=== PATIENT | female | born 1975 | race Caucasian/White ===

== ENCOUNTER → 2016-09-22 | Outpatient (CLI) | payer OTHER ==
[2016-09-22 11:17] LABS: BASO % 0.6 % (0.0-1.0); EOS # 0.1 K/mm3 (0.0-0.50); EOS % 2.2 % (0.0-3.0); LARGE UNSTAINED CELL # 0.1 K/mm3 (0.0-0.4); LARGE UNSTAINED CELL % 2.1 % (0.0-4.0); LYMPH # 1.3 K/mm3 (1.5-4.5); LYMPH % 28.5 % (24.0-44.0); MEAN CORPUSCULAR HEMOGLOBIN 29.6 pg (27.0-33.0); MEAN CORPUSCULAR HGB CONC 33.7 g/dl (32.0-36.5); MEAN CORPUSCULAR VOLUME 87.7 fl (80.0-96.0); MONO # 0.3 K/mm3 (0.0-0.8); MONO % 6.2 % (0.0-5.0); NEUTROPHILS # 2.8 K/mm3 (1.8-7.7); NEUTROPHILS % 60.5 % (36.0-66.0); PLATELET COUNT, AUTOMATED 265 k/mm3 (150-450); RED CELL DISTRIBUTION WIDTH 12.2 % (11.5-14.5); WHITE BLOOD COUNT 4.6 K/mm3 (4.0-10.0)
[2016-09-22 11:53] LABS: VITAMIN B12 LEVEL 350 PG/ML (247-911)
[2016-09-22 12:45] LABS: ALBUMIN 3.8 GM/DL (3.2-5.2); ALBUMIN/GLOBULIN RATIO 1.31 (1.00-1.93); ALKALINE PHOSPHATASE 65 U/L (45-117); ALT/SGPT 19 U/L (12-78); ANION GAP 8 MEQ/L (8-16); AST/SGOT 11 U/L (15-37); BILIRUBIN,TOTAL 1.2 MG/DL (0.2-1.0); BLOOD UREA NITROGEN 8 MG/DL (7-18); CALCIUM LEVEL 8.8 MG/DL (8.5-10.1); CARBON DIOXIDE LEVEL 29 MEQ/L (21-32); CHLORIDE LEVEL 106 MEQ/L (98-107); CHOLESTEROL LEVEL 159 MG/DL (<200); CREATININE FOR GFR 0.67 MG/DL (0.55-1.02); FERRITIN 7 NG/ML (8-252); GLOMERULAR FILTRATION RATE > 60.0 (>58); GLUCOSE, FASTING 86 MG/DL (70-105); PERCENT SATURATION 18.4 % (13.2-37.4); POTASSIUM SERUM 4.3 MEQ/L (3.5-5.1); SODIUM LEVEL 143 MEQ/L (136-145); TOTAL IRON BINDING CAPACITY 376 UG/DL (250-450); TOTAL PROTEIN 6.7 GM/DL (6.4-8.2); TRIGLYCERIDES LEVEL 92 MG/DL (<150)
[2016-09-24 11:20] LABS: PRETREATED FOLATE FOR RBCFOL 5.8 NG/ML
== END ==
LOC: M LAB 10:14
PROVIDERS: ATTEND Family Medicine
DX: D50.9 Iron deficiency anemia, unspecified (principal); E55.9 Vitamin D deficiency, unspecified; Z98.84 Bariatric surgery status; E53.8 Deficiency of other specified B group vitamins

== ENCOUNTER → 2017-01-14 | Outpatient (CLI) | payer OTHER ==
--- NOTE | 2017-01-14 14:53 | REPMRS ---
Patient History The patient states she had a clinical breast exam in 01/19 No known family history of cancer. Digital Woman Screen Mammo: January 14, 2017 - Exam #: [id number] Bilateral CC and MLO view(s) were taken. Technologist: Nichol Haque, Technologist Prior study comparison: January 14, 2016, digital woman screen mammo performed at [facility]. FINDINGS: There are scattered fibroglandular densities. There has been no change in the appearance of the mammogram from the prior studies. There is a mild amount of residual fibroglandular tissue which is fairly symmetric. There is no interval development of dominant mass, architectural distortion, or clustered microcalcification suggestive of malignancy. ASSESSMENT: BI-RADS/ACR category 1 mammogram. Negative. Recommendation Routine screening mammogram in 1 year (for women over age 40). This mammogram was interpreted with the aid of an FDA-approved computer-aided dectection system. Electronically Signed By: David Oquendo MD 01/14/17 7364
== END ==
LOC: M WHC 13:29
PROVIDERS: ATTEND Nurse Practitioner Family
DX: Z12.31 Encounter for screening mammogram for malignant neoplasm of breast (principal)

== ENCOUNTER → 2017-01-14 | Outpatient (REF) | payer OTHER | LOC: M SFHCPLAZ 15:46 | PROVIDERS: ATTEND Nurse Practitioner Family | DX: Z11.3 Encounter for screening for infections with a predominantly sexual mode of transmission (principal) ==

== ENCOUNTER 2017-05-10 07:41 | Emergency (ER) | payer OTHER ==
[~2017-05-10] VITALS: Ht 162.6 cm; Wt 68.2 kg
[2017-05-10] MEDS ORDERED: VITA100L PO (07:48)
[2017-05-10] MEDS ORDERED: MULTCAP8 PO (07:48)
--- NOTE | 2017-05-10 08:54 | REP ---
Clinical: Chest pain . Comparison: None . Technique: PA and lateral. Findings: The mediastinum and cardiac silhouette are normal. The lung beard are clear and without acute consolidation, effusion, or pneumothorax. The skeletal structures are intact and normal. Impression: 1. No acute cardiopulmonary process. Signed by Carl Mejia MD 05/10/2017 08:45 A
[2017-05-10 09:03] LABS: BASO # 0.1 K/mm3 (0.0-0.2); BASO % 1.3 % (0.0-1.0); EOS # 0.1 K/mm3 (0.0-0.50); LARGE UNSTAINED CELL # 0.1 K/mm3 (0.0-0.4); LARGE UNSTAINED CELL % 2.3 % (0.0-4.0); LYMPH # 1.3 K/mm3 (1.5-4.5); LYMPH % 28.2 % (24.0-44.0); MEAN CORPUSCULAR HGB CONC 34.9 g/dl (32.0-36.5); MEAN CORPUSCULAR VOLUME 88.6 fl (80.0-96.0); MONO # 0.2 K/mm3 (0.0-0.8); MONO % 5.1 % (0.0-5.0); NEUTROPHILS # 2.7 K/mm3 (1.8-7.7); NEUTROPHILS % 60.1 % (36.0-66.0); PLATELET COUNT, AUTOMATED 263 k/mm3 (150-450); RED CELL DISTRIBUTION WIDTH 12.2 % (11.5-14.5); WHITE BLOOD COUNT 4.5 K/mm3 (4.0-10.0)
[2017-05-10 09:20] LABS: CONTROL LINE HCG INT CTR LINE PRESENT
[2017-05-10 09:34] LABS: ANION GAP 8 MEQ/L (8-16); BLOOD UREA NITROGEN 9 MG/DL (7-18); CALCIUM LEVEL 8.3 MG/DL (8.5-10.1); CARBON DIOXIDE LEVEL 27 MEQ/L (21-32); CHLORIDE LEVEL 109 MEQ/L (98-107); CREATININE FOR GFR 0.61 MG/DL (0.55-1.02); FREE T4 1.05 NG/DL (0.76-1.46); GLOMERULAR FILTRATION RATE > 60.0 (>58); GLUCOSE, FASTING 78 MG/DL (70-105); POTASSIUM SERUM 4.2 MEQ/L (3.5-5.1); SODIUM LEVEL 144 MEQ/L (136-145)
[2017-05-10 10:47] VITALS: BP 104/61
--- NOTE | 2017-05-10 21:12 | ECGEPIP ---
Stationary ECG Study [facility] - ED Test Date: 2017-05-10 Pat Name: WINSTON ANDERSEN Department: ED Room: - Gender: F Director Of Philanthropy: JT : 1975 Requested By: Annalise Cantu Order Number: [id number] Reading MD: Annalise Cantu Measurements Intervals [place] Rate: 60 P: 66 NM: 179 QRS: 0 QRSD: 92 T: 23 QT: 419 QTc: 419 Interpretive Statements SINUS RHYTHM NO PRIOR FOR COMPARISON Electronically Signed On 05-10-2017 21:11:38 EDT by Annalise Cantu
== END 2017-05-10 10:48 | disposition home or self-care (01) ==
LOC: M ED 07:41
DX: R00.2 Palpitations (principal); Z98.84 Bariatric surgery status; Z79.899 Other long term (current) drug therapy

== ENCOUNTER 2017-10-02 11:16 | Emergency (ER) | payer OTHER | END 2017-10-02 15:32 | disposition home or self-care (01) | LOC: M ED 11:16 | DX: J06.9 Acute upper respiratory infection, unspecified (principal); M54.2 Cervicalgia; M54.9 Dorsalgia, unspecified; S46.812A Strain of other muscles, fascia and tendons at shoulder and upper arm level, left arm, initial encounter; X58.XXXA Exposure to other specified factors, initial encounter; Y92.9 Unspecified place or not applicable; Y93.9 Activity, unspecified; Z98.84 Bariatric surgery status; Z87.891 Personal history of nicotine dependence; Z79.899 Other long term (current) drug therapy | CPT/HCPCS: 87880 ==

== ENCOUNTER → 2017-11-20 | Outpatient (CLI) | payer OTHER | LOC: M WUC 15:26 | DX: M25.531 Pain in right wrist (principal) | CPT/HCPCS: 73110 ==

== ENCOUNTER → 2018-01-16 | Outpatient (REF) | payer OTHER ==
[2018-01-16 12:30] LABS: BASO % 1.3 % (0.0-1.0); EOS # 0.1 10^3/uL (0.0-0.50); EOS % 3.2 % (0.0-3.0); HEMOGLOBIN 12.4 g/dl (12.0-15.5); IMMATURE GRANULOCYTE % 0.3 % (0-3.0); LYMPH % 30.7 % (24.0-44.0); MEAN CORPUSCULAR HEMOGLOBIN 29.4 pg (27.0-33.0); MEAN CORPUSCULAR HGB CONC 33.5 g/dl (32.0-36.5); MEAN CORPUSCULAR VOLUME 87.7 fl (80.0-96.0); MONO # 0.4 10^3/uL (0.0-0.8); MONO % 12.1 % (0.0-5.0); NEUTROPHILS # 1.6 10^3/uL (1.8-7.7); NEUTROPHILS % 52.4 % (36.0-66.0); PLATELET COUNT, AUTOMATED 253 10^3/uL (150-450); RED BLOOD COUNT 4.22 10^6/uL (4.00-5.40); RED CELL DISTRIBUTION WIDTH 12.7 % (11.5-14.5); WHITE BLOOD COUNT 3.1 10^3/uL (4.0-10.0)
[2018-01-16 12:47] LABS: VITAMIN B12 LEVEL 240 PG/ML (247-911)
[2018-01-16 13:09] LABS: FERRITIN 9 NG/ML (8-252); FREE T4 0.97 NG/DL (0.76-1.46)
[2018-01-17 11:37] LABS: RBC FOLATE 454.1 NG/ML (280-791)
== END ==
LOC: M SFHCPLAZ 09:17
DX: D50.9 Iron deficiency anemia, unspecified (principal); E53.8 Deficiency of other specified B group vitamins; Z98.84 Bariatric surgery status

== ENCOUNTER → 2018-01-16 | Outpatient (REF) | payer OTHER | LOC: M SFHCPLAZ 18:06 | DX: Z01.419 Encounter for gynecological examination (general) (routine) without abnormal findings (principal); Z11.51 Encounter for screening for human papillomavirus (HPV) | CPT/HCPCS: G0123 ==

== ENCOUNTER → 2018-01-16 | Outpatient (CLI) | payer OTHER | LOC: M WHC 14:34 | DX: Z12.31 Encounter for screening mammogram for malignant neoplasm of breast (principal) | CPT/HCPCS: 77067 ==

== ENCOUNTER → 2018-05-12 | Outpatient (REF) | payer OTHER ==
[2018-05-12 11:01] LABS: BASO % 0.9 % (0.0-1.0); EOS # 0.1 10^3/uL (0.0-0.50); EOS % 2.2 % (0.0-3.0); HEMOGLOBIN 12.2 g/dl (12.0-15.5); IMMATURE GRANULOCYTE % 0.3 % (0-3.0); LYMPH # 1.4 10^3/uL (1.5-4.5); LYMPH % 42.6 % (24.0-44.0); MEAN CORPUSCULAR HEMOGLOBIN 29.4 pg (27.0-33.0); MEAN CORPUSCULAR VOLUME 89.2 fl (80.0-96.0); MONO # 0.3 10^3/uL (0.0-0.8); MONO % 10.7 % (0.0-5.0); NEUTROPHILS # 1.4 10^3/uL (1.8-7.7); NEUTROPHILS % 43.3 % (36.0-66.0); PLATELET COUNT, AUTOMATED 253 10^3/uL (150-450); RED BLOOD COUNT 4.15 10^6/uL (4.00-5.40); RED CELL DISTRIBUTION WIDTH 12.6 % (11.5-14.5); RETIC HEMOGLOBIN EQUIVALENT 35.8 pg (24-36); RETICULOCYTE # 57.3 10^9/L (17-77); RETICULOCYTE % 1.4 % (0.5-1.5); WHITE BLOOD COUNT 3.2 10^3/uL (4.0-10.0)
[2018-05-12 11:25] LABS: PTH INTACT 53.6 PG/ML (18.5-88.0); TOTAL 25(OH) VITAMIN D 34.7 NG/ML (30.0-100.0); VITAMIN B12 LEVEL 509 PG/ML (247-911)
[2018-05-12 11:43] LABS: ALBUMIN 3.5 GM/DL (3.2-5.2); ALBUMIN/GLOBULIN RATIO 1.09 (1.00-1.93); ALKALINE PHOSPHATASE 67 U/L (45-117); ALT/SGPT 16 U/L (12-78); ANION GAP 10 MEQ/L (8-16); AST/SGOT 19 U/L (7-37); BILIRUBIN,DIRECT 0.2 MG/DL (0.0-0.2); BILIRUBIN,TOTAL 0.9 MG/DL (0.2-1.0); BLOOD UREA NITROGEN 8 MG/DL (7-18); CALCIUM LEVEL 8.7 MG/DL (8.5-10.1); CARBON DIOXIDE LEVEL 26 MEQ/L (21-32); CHLORIDE LEVEL 104 MEQ/L (98-107); CREATININE FOR GFR 0.77 MG/DL (0.55-1.30); GLOMERULAR FILTRATION RATE > 60.0 (>58); GLUCOSE, FASTING 91 MG/DL (70-100); POTASSIUM SERUM 3.9 MEQ/L (3.5-5.1); SODIUM LEVEL 140 MEQ/L (136-145); TOTAL PROTEIN 6.7 GM/DL (6.4-8.2)
[2018-05-16 08:06] LABS: H PYLORI SERUM QUANT IgG ABY 0.05 (0.00-0.79)
[2018-05-16 08:06] LABS: ZINC RBC 1424 ug/dL (878-1660)
== END ==
LOC: M SFHCPLAZ 08:19
DX: E53.8 Deficiency of other specified B group vitamins (principal); E80.4 Gilbert syndrome; D72.819 Decreased white blood cell count, unspecified; E55.9 Vitamin D deficiency, unspecified; R10.13 Epigastric pain; D50.9 Iron deficiency anemia, unspecified; Z98.84 Bariatric surgery status
CPT/HCPCS: 82248

== ENCOUNTER 2018-07-09 18:19 | Emergency (ER) | payer OTHER ==
[2018-07-09] MEDS: KETOROLAC 60 MG/2 ML VIAL (J1885) IM (19:12)
[2018-07-09] MEDS: CYCLOBENZAPRINE 10 MG TAB PO (19:12)
== END 2018-07-09 19:45 | disposition home or self-care (01) ==
LOC: M ED 18:19
DX: M62.830 Muscle spasm of back (principal); M54.5 Low back pain; Z87.891 Personal history of nicotine dependence; Z79.899 Other long term (current) drug therapy
CPT/HCPCS: J1885

== ENCOUNTER → 2018-08-16 | Outpatient (REF) | payer OTHER | LOC: M SFHCLERA 14:13 | DX: R05 Cough (principal) ==

== ENCOUNTER → 2018-10-25 | Outpatient (REF) | payer OTHER ==
[~2018-10-25] MED LIST: APAP500T10 PO; CALCTAB28 PO; CYCL10TA PO; MULTCAP8 PO; ULTR50TA8 PO; VICO5TAB16 PO; VITA100L PO
[2018-10-25 09:48] LABS: BASO # 0.1 10^3/uL (0.0-0.2); BASO % 1.2 % (0.0-1.0); EOS # 0.1 10^3/uL (0.0-0.50); EOS % 2.7 % (0.0-3.0); HEMATOCRIT 36.4 % (36.0-47.0); HEMOGLOBIN 11.6 g/dl (12.0-15.5); LYMPH # 1.5 10^3/uL (1.5-4.5); LYMPH % 36.5 % (24.0-44.0); MEAN CORPUSCULAR HEMOGLOBIN 28.4 pg (27.0-33.0); MEAN CORPUSCULAR HGB CONC 31.9 g/dl (32.0-36.5); MONO # 0.4 10^3/uL (0.0-0.8); MONO % 9.4 % (0.0-5.0); NEUTROPHILS # 2.1 10^3/uL (1.8-7.7); PLATELET COUNT, AUTOMATED 229 10^3/uL (150-450); RED BLOOD COUNT 4.09 10^6/uL (4.00-5.40); WHITE BLOOD COUNT 4.1 10^3/uL (4.0-10.0)
[2018-10-25 10:41] LABS: ALBUMIN 3.5 GM/DL (3.2-5.2); ALT/SGPT 19 U/L (12-78); BLOOD UREA NITROGEN 9 MG/DL (7-18); CALCIUM LEVEL 8.4 MG/DL (8.5-10.1); CARBON DIOXIDE LEVEL 28 MEQ/L (21-32); CHLORIDE LEVEL 106 MEQ/L (98-107); GLOMERULAR FILTRATION RATE > 60.0 (>58); GLUCOSE, FASTING 132 MG/DL (70-100); PTH INTACT 70.8 PG/ML (18.5-88.0); SODIUM LEVEL 140 MEQ/L (136-145); TOTAL 25(OH) VITAMIN D 23.8 NG/ML (30.0-100.0); TOTAL PROTEIN 6.2 GM/DL (6.4-8.2)
== END ==
LOC: M SFHCPLAZ 08:06
PROVIDERS: ATTEND Family Medicine
DX: D72.819 Decreased white blood cell count, unspecified (principal); E55.9 Vitamin D deficiency, unspecified

== ENCOUNTER → 2019-02-02 | Outpatient (CLI) | payer BC ==
[~2019-02-02] MED LIST changes: -VICO5TAB16 PO; +VICO5TAB17 PO
--- NOTE | 2019-02-02 14:52 | REPMRS ---
Patient History The patient states she had a clinical breast exam in 01/2019. Family history of pancreatic cancer at age 78 in paternal grandfather. Digital Woman Screen Mammo: February 02, 2019 - Exam #: [id number] Bilateral CC and MLO view(s) were taken. Technologist: Nataliia Barger Technologist Prior study comparison: January 16, 2018, digital woman screen mammo performed at [facility]. January 14, 2017, digital woman screen mammo performed at [facility]. January 14, 2016, digital woman screen mammo performed at [facility]. FINDINGS: There are scattered fibroglandular densities. There is a moderate amount of residual fibroglandular tissue which is fairly symmetric. There is no interval development of dominant mass, architectural distortion, or clustered microcalcification typical of malignancy. There has been no change in the appearance of the mammogram from the prior studies. 3-D tomosynthesis shows no additional findings. Assessment: BI-RADS/ACR category 1 mammogram. Negative Mammogram. Recommendation Routine screening mammogram of both breasts in 1 year (for women over age 40). This patient's Lifetime Breast Cancer RIsk is estimated at 9.2 %. This mammogram was interpreted with the aid of an FDA-approved computer-aided dectection system. Electronically Signed By: Jerome Boland MD 02/02/19 1306
== END ==
LOC: M WHC 11:42
PROVIDERS: ATTEND Family Medicine
DX: Z12.31 Encounter for screening mammogram for malignant neoplasm of breast (principal)

== ENCOUNTER → 2019-02-02 | Outpatient (REF) | payer BC ==
[2019-02-02 15:28] LABS: CHLAMYDIA DNA AMPLIFICATION NEGATIVE (NEGATIVE); GC DNA AMPLIFICATION NEGATIVE (NEGATIVE)
[2019-02-06 14:11] LABS: HPV HYBRID CAPTURE II Negative (Negative)
== END ==
LOC: M SFHCWAGY 12:06
PROVIDERS: ATTEND Nurse Practitioner Family
DX: Z12.4 Encounter for screening for malignant neoplasm of cervix (principal); Z11.3 Encounter for screening for infections with a predominantly sexual mode of transmission
CPT/HCPCS: 87491; 87591; 87624; G0123

== ENCOUNTER → 2019-07-04 | Outpatient (REF) | payer OTHER ==
[2019-07-04 11:02] LABS: ALBUMIN 3.7 GM/DL (3.2-5.2); ALT/SGPT 23 U/L (12-78); BILIRUBIN,TOTAL 0.8 MG/DL (0.2-1.0); BLOOD UREA NITROGEN 9 MG/DL (7-18); CALCIUM LEVEL 9.1 MG/DL (8.5-10.1); CARBON DIOXIDE LEVEL 29 MEQ/L (21-32); CHLORIDE LEVEL 108 MEQ/L (98-107); CREATININE FOR GFR 0.75 MG/DL (0.55-1.30); GLOMERULAR FILTRATION RATE > 60.0 (>58); GLUCOSE, FASTING 81 MG/DL (70-100); POTASSIUM SERUM 4.8 MEQ/L (3.5-5.1); SODIUM LEVEL 141 MEQ/L (136-145); TOTAL PROTEIN 7.4 GM/DL (6.4-8.2)
[2019-07-04 11:10] LABS: TOTAL 25(OH) VITAMIN D 28.3 NG/ML (30.0-100.0)
[2019-07-04 11:14] LABS: HEMOGLOBIN A1c 5.5 %
[2019-07-04 11:19] LABS: BASO # 0.1 10^3/uL (0.0-0.2); BASO % 1.5 % (0.0-1.0); EOS # 0.2 10^3/uL (0.0-0.5); EOS % 3.6 % (0.0-3.0); HEMATOCRIT 38.2 % (36.0-47.0); HEMOGLOBIN 11.9 g/dl (12.0-15.5); LYMPH # 1.8 10^3/uL (1.5-5.0); LYMPH % 37.9 % (24.0-44.0); MEAN CORPUSCULAR HGB CONC 31.2 g/dl (32.0-36.5); MEAN CORPUSCULAR VOLUME 86.6 fl (80.0-96.0); MONO # 0.5 10^3/uL (0.0-0.8); MONO % 10.3 % (0.0-5.0); NEUTROPHILS # 2.2 10^3/uL (1.5-8.5); NEUTROPHILS % 46.3 % (36.0-66.0); PLATELET COUNT, AUTOMATED 306 10^3/uL (150-450); RED BLOOD COUNT 4.41 10^6/uL (4.00-5.40); WHITE BLOOD COUNT 4.8 10^3/uL (4.0-10.0)
[2019-07-05 14:08] LABS: H PYLORI SERUM QUANT IgG ABY 0.15 (0.00-0.79); INSULIN LEVEL 1.8 uIU/mL (2.6-24.9)
== END ==
LOC: M SFHCPLAZ 07:50
PROVIDERS: ATTEND Family Medicine
DX: E53.8 Deficiency of other specified B group vitamins (principal); E55.9 Vitamin D deficiency, unspecified; Z98.84 Bariatric surgery status; R10.13 Epigastric pain

== ENCOUNTER → 2020-01-24 | Outpatient (REF) | payer OTHER ==
[~2020-01-24] MED LIST changes: +CYCL-707 PO; -CYCL10TA PO
[2020-01-24 12:22] LABS: BASO # 0.1 10^3/uL (0.0-0.2); BASO % 1.1 % (0.0-1.0); EOS # 0.1 10^3/uL (0.0-0.5); EOS % 2.5 % (0.0-3.0); HEMATOCRIT 36.4 % (36.0-47.0); HEMOGLOBIN 11.7 g/dl (12.0-15.5); LYMPH # 1.5 10^3/uL (1.5-5.0); LYMPH % 34.9 % (24.0-44.0); MEAN CORPUSCULAR HGB CONC 32.1 g/dl (32.0-36.5); MEAN CORPUSCULAR VOLUME 83.9 fl (80.0-96.0); MONO # 0.4 10^3/uL (0.0-0.8); NEUTROPHILS # 2.3 10^3/uL (1.5-8.5); NEUTROPHILS % 52.3 % (36.0-66.0); PLATELET COUNT, AUTOMATED 306 10^3/uL (150-450); RED BLOOD COUNT 4.34 10^6/uL (4.00-5.40); WHITE BLOOD COUNT 4.4 10^3/uL (4.0-10.0)
[2020-01-24 12:28] LABS: HEMATOCRIT 36.4 % (36.0-47.0)
[2020-01-24 12:32] LABS: FREE T4 1.14 NG/DL (0.76-1.46); PERCENT SATURATION 10.5 % (13.2-45.0); PTH INTACT 86.6 PG/ML (18.5-88.0); THYROID STIMULATING HORMONE 1.82 uIU/ML (0.358-3.740); TOTAL 25(OH) VITAMIN D 33.8 NG/ML (30.0-100.0)
== END ==
LOC: M SFHCPLAZ 09:41
PROVIDERS: ATTEND Family Medicine
DX: D50.9 Iron deficiency anemia, unspecified (principal); E53.8 Deficiency of other specified B group vitamins; E55.9 Vitamin D deficiency, unspecified

== ENCOUNTER → 2020-03-26 | Outpatient (REF) | payer BC, OTHER ==
[2020-03-26 16:38] LABS: CHLAMYDIA DNA AMPLIFICATION NEGATIVE (NEGATIVE); GC DNA AMPLIFICATION NEGATIVE (NEGATIVE)
== END ==
LOC: M SFHCWAGY 14:42
PROVIDERS: ATTEND Nurse Practitioner Family
DX: Z12.4 Encounter for screening for malignant neoplasm of cervix (principal); N76.0 Acute vaginitis; A59.09 Other urogenital trichomoniasis
CPT/HCPCS: 87491; 87591; 87624; G0123

== ENCOUNTER → 2020-03-26 | Outpatient (CLI) | payer BC, OTHER ==
--- NOTE | 2020-03-26 12:21 | REPMRS ---
Patient History The patient states she had a clinical breast exam in March 2020. Family history of pancreatic cancer at age 78 in paternal grandfather. Digital Woman Screen Mammo: March 26, 2020 - Exam #: [id number] Bilateral CC and MLO view(s) were taken. Technologist: Flori Ornelas, Technologist Prior study comparison: February 02, 2019, bilateral digital woman screen mammo performed at [facility]. January 16, 2018, digital woman screen mammo performed at [facility]. January 14, 2017, digital woman screen mammo performed at [facility]. FINDINGS: The breast tissue is heterogeneously dense. This may lower the sensitivity of mammography. The Volpara volumetric breast density category is: C. There is a moderate amount of heterogeneously dense fibroglandular tissue which is fairly symmetric. There is no interval development of dominant mass, architectural distortion, or grouped microcalcification typical of malignancy. There has been no change in the appearance of the mammogram from the prior studies. 3-D tomosynthesis shows no additional findings. Assessment: BI-RADS/ACR category 1 mammogram. Negative Mammogram. Recommendation Routine screening mammogram of both breasts in 1 year (for women over age 40). This patient's Lifetime Breast Cancer RIsk is estimated at 9.1 %. This mammogram was interpreted with the aid of an FDA-approved computer-aided dectection system. Electronically Signed By: Jerome Boland MD 03/26/20 0699
== END ==
LOC: M WHC 10:25
PROVIDERS: ATTEND Nurse Practitioner Family
DX: Z12.31 Encounter for screening mammogram for malignant neoplasm of breast (principal)

== ENCOUNTER → 2020-06-19 | Outpatient (REF) | payer OTHER | LOC: M SFHCPLAZ 16:45 | PROVIDERS: ATTEND Physician Assistant | DX: J06.9 Acute upper respiratory infection, unspecified (principal) ==

== ENCOUNTER → 2020-08-27 | Outpatient (CLI) | payer OTHER | LOC: M LABSMTC 13:53 | PROVIDERS: ATTEND Family Medicine | DX: Z20.828 Contact with and (suspected) exposure to other viral communicable diseases (principal) ==

== ENCOUNTER → 2020-10-25 | Outpatient (CLI) | payer OTHER ==
--- NOTE | 2020-10-25 12:00 | REP ---
INDICATION: SPONDYLOSIS W/O MYELOPATHY OR RADICULOPATHY,LABS 1ST. COMPARISON: 02/18/2015 TECHNIQUE: Five views FINDINGS: Study again shows levoconvex rotatory curvature of the lumbar spine grossly unchanged. Some loss of lordosis noted on the lateral view but all this is stable. Minor hypertrophic facet changes at L5-S1, left greater than right due to altered weight-bearing mechanics. Pedicles, spinous and transverse processes are unremarkable. Sacral ala, foramina, SI joints and iliac wings were unremarkable. Lower thoracic vertebral levels and visualized ribs are intact. There are no compression deformities or focal bone lesions. Right upper quadrant clips from prior cholecystectomy and suture lines in the GE junction are again noted. IMPRESSION: 1. Levorotatory scoliosis of the lumbar spine, unchanged from previous study. Minor degenerative facet arthritic changes at L5-S1 due to altered weight-bearing mechanics. No compression deformity or destructive bone lesion. Stable examination. <Electronically signed by Ernie Saldaña > 10/25/20 1019
[2020-10-25 12:07] LABS: BASO # 0.1 10^3/uL (0.0-0.2); BASO % 1.3 % (0.0-1.0); EOS # 0.1 10^3/uL (0.0-0.5); EOS % 1.7 % (0.0-3.0); HEMATOCRIT 37.4 % (36.0-47.0); LYMPH # 1.9 10^3/uL (1.5-5.0); LYMPH % 32.4 % (24.0-44.0); MEAN CORPUSCULAR HEMOGLOBIN 28.1 pg (27.0-33.0); MEAN CORPUSCULAR HGB CONC 32.1 g/dl (32.0-36.5); MEAN CORPUSCULAR VOLUME 87.6 fl (80.0-96.0); MONO # 0.5 10^3/uL (0.0-0.8); MONO % 8.9 % (2.0-8.0); NEUTROPHILS # 3.3 10^3/uL (1.5-8.5); NEUTROPHILS % 55.4 % (36.0-66.0); PLATELET COUNT, AUTOMATED 273 10^3/uL (150-450); RED BLOOD COUNT 4.27 10^6/uL (4.00-5.40)
[2020-10-25 12:11] LABS: HEMATOCRIT 37.4 % (36.0-47.0)
[2020-10-25 12:31] LABS: ALBUMIN 3.6 GM/DL (3.2-5.2); ALT/SGPT 21 U/L (12-78); BILIRUBIN,TOTAL 0.8 MG/DL (0.2-1.0); BLOOD UREA NITROGEN 11 MG/DL (7-18); CALCIUM LEVEL 8.4 MG/DL (8.5-10.1); CARBON DIOXIDE LEVEL 26 MEQ/L (21-32); CHLORIDE LEVEL 108 MEQ/L (98-107); CHOLESTEROL LEVEL 171 MG/DL (<200); CHOLESTEROL RISK RATIO 2.514 (<5); CREATININE FOR GFR 0.73 MG/DL (0.55-1.30); FERRITIN 7 NG/ML (8-252); GLOMERULAR FILTRATION RATE > 60.0 (>58); GLUCOSE, FASTING 71 MG/DL (70-100); HDL CHOLESTEROL 68 MG/DL (>40); LDL CHOLESTEROL 91 MG/DL (<100); NON-HDL-C 103 MG/DL; POTASSIUM SERUM 4.8 MEQ/L (3.5-5.1); SODIUM LEVEL 140 MEQ/L (136-145); TOTAL PROTEIN 6.7 GM/DL (6.4-8.2); TRIGLYCERIDES LEVEL 59 MG/DL (<150)
[2020-10-27 11:10] LABS: TOTAL 25(OH) VITAMIN D 31.4 NG/ML (30.0-100.0)
[2020-10-27 11:11] LABS: PTH INTACT 72.2 PG/ML (18.5-88.0); VITAMIN B12 LEVEL 523 PG/ML (247-911)
== END ==
LOC: M LAB 11:01
PROVIDERS: ATTEND Family Medicine
DX: E53.8 Deficiency of other specified B group vitamins (principal); D50.9 Iron deficiency anemia, unspecified; E55.9 Vitamin D deficiency, unspecified; R10.13 Epigastric pain; J30.89 Other allergic rhinitis; M47.816 Spondylosis without myelopathy or radiculopathy, lumbar region

== ENCOUNTER → 2020-10-28 | Outpatient (CLI) | payer OTHER ==
--- NOTE | 2020-10-28 14:52 | REP ---
INDICATION: LT PELVIC PAIN. COMPARISON: Comparison pelvic sonography September 03, 2013.. TECHNIQUE: Transabdominal and transvaginal scanning were performed. FINDINGS: Uterine dimensions are normal at 9.8 x 5.2 x 6.1 cm. Endometrial echo is cm thick and centrally placed. No free fluid is seen in the cul-de-sac. Visualized bladder hanna are smooth. Endometrium could not be visualized due to the presence of fibroids. Complex shadowing fibroids are seen. The 3 largest of these measure 1.5, 1.5, and 1.2 cm in greatest diameter respectively. There are distributed anteriorly and posteriorly in the uterus. The right ovary has dimensions of 3.2 x 2.1 x 2.6 cm. It's Doppler flow is normal with a resistive index of 0.50. There is a 1.5 cm cyst in the right ovary consistent with a follicle cyst. The left ovary dimensions are normal as well at 2.3 x 2.1 x 2.2 cm. It's Doppler flow was normal with resistive index of 0.56. No abnormality in the left ovary. IMPRESSION: Multiple complex hypoechoic nodular changes in the uterus consistent with fibroids. Otherwise negative.. <Electronically signed by Jerome Boland > 10/28/20 [id number]
== END ==
LOC: M RAD 12:54
PROVIDERS: ATTEND Physician Assistant
DX: R10.2 Pelvic and perineal pain (principal)

== ENCOUNTER → 2020-10-28 | Outpatient (REF) | payer OTHER | LOC: M SFHCPLAZ 17:22 | PROVIDERS: ATTEND Physician Assistant | DX: R10.2 Pelvic and perineal pain (principal) ==

== ENCOUNTER → 2020-12-30 | Outpatient (CLI) | payer OTHER ==
--- NOTE | 2020-12-30 12:56 | REP ---
INDICATION: PAIN IN RIGHT UPPER ARM,OTHER ENTHESOPATHIES, NOT. COMPARISON: None. TECHNIQUE: Three views of the shoulder were performed. FINDINGS: The acromioclavicular and glenohumeral relationships are within normal limits. There is no acute fracture or destructive osseous lesion. IMPRESSION: Within normal limits <Electronically signed by Frandy Villarreal > 12/30/20 1961
--- NOTE | 2020-12-30 13:02 | REP ---
INDICATION: PAIN IN RIGHT UPPER ARM,OTHER ENTHESOPATHIES, NOT. COMPARISON: None TECHNIQUE: Two views FINDINGS: There is no acute fracture or destructive osseous lesion IMPRESSION: Negative exam <Electronically signed by Frandy Villarreal > 12/30/20 3523
== END ==
LOC: M RAD 11:11
PROVIDERS: ATTEND Physician Assistant
DX: M79.621 Pain in right upper arm (principal); M77.8 Other enthesopathies, not elsewhere classified

== ENCOUNTER → 2021-03-24 | Outpatient (CLI) | payer OTHER ==
[~2021-03-24] MED LIST changes: +CIPR-249 PO; +FLAG500T PO; +PANT40TA29; +PRAMIPEXOLE
[2021-03-24 10:57] LABS: APPEARANCE, URINE CLEAR (CLEAR); BACTERIA, URINE AUTO NEGATIVE (NEGATIVE); BILIRUBIN, URINE AUTO NEGATIVE (NEGATIVE); BLOOD, URINE BLOOD NEGATIVE (NEGATIVE); COLOR, URINE YELLOW (YELLOW); GLUCOSE, URINE (UA) AUTO NEGATIVE (NEGATIVE); KETONE, URINE AUTO NEGATIVE (NEGATIVE); LEUKOCYTE ESTERASE, URINE AUTO NEGATIVE (NEGATIVE); MUCUS, URINE SMALL (NEGATIVE); NITRITE, URINE AUTO NEGATIVE (NEGATIVE); PROTEIN, URINE AUTO NEGATIVE (NEGATIVE); RBC, URINE AUTO 0 /HPF (0-3); SPECIFIC GRAVITY URINE AUTO 1.015 (1.002-1.035); SQUAMOUS EPITHELIAL CELL UR AU 1 /HPF (0-6); WBC, URINE AUTO 1 /HPF (0-3)
== END ==
LOC: M PLALAB 08:44
PROVIDERS: ATTEND Family Medicine
DX: R30.0 Dysuria (principal)

== ENCOUNTER 2021-03-26 09:53 | Emergency (ER) | payer OTHER ==
[~2021-03-26] VITALS: Ht 162.6 cm; Wt 69.4 kg
[~2021-03-26 09:53] MED LIST changes: -CIPR-249 PO; -FLAG500T PO; -PANT40TA29; -PRAMIPEXOLE
[2021-03-26] MEDS ORDERED: CIPR-249 PO (10:08)
[2021-03-26] MEDS ORDERED: PANT40TA29 (10:08)
[2021-03-26] MEDS ORDERED: FLAG500T PO (10:08)
[2021-03-26] MEDS ORDERED: PRAMIPEXOLE (10:08)
[2021-03-26 11:56] LABS: BASO # 0.1 10^3/uL (0.0-0.2); BASO % 1.1 % (0.0-1.0); EOS # 0.1 10^3/uL (0.0-0.5); EOS % 1.6 % (0.0-3.0); HEMATOCRIT 40.4 % (36.0-47.0); HEMOGLOBIN 13.4 g/dl (12.0-15.5); LYMPH # 1.6 10^3/uL (1.5-5.0); LYMPH % 35.3 % (24.0-44.0); MEAN CORPUSCULAR HEMOGLOBIN 28.9 pg (27.0-33.0); MEAN CORPUSCULAR HGB CONC 33.2 g/dl (32.0-36.5); MEAN CORPUSCULAR VOLUME 87.1 fl (80.0-96.0); MONO # 0.4 10^3/uL (0.0-0.8); MONO % 9.7 % (2.0-8.0); NEUTROPHILS # 2.3 10^3/uL (1.5-8.5); NEUTROPHILS % 51.8 % (36.0-66.0); PLATELET COUNT, AUTOMATED 251 10^3/uL (150-450); RED BLOOD COUNT 4.64 10^6/uL (4.00-5.40); WHITE BLOOD COUNT 4.4 10^3/uL (4.0-10.0)
[2021-03-26 12:28] LABS: ALBUMIN 3.9 GM/DL (3.2-5.2); ALT/SGPT 23 U/L (12-78); BLOOD UREA NITROGEN 7 MG/DL (7-18); CALCIUM LEVEL 8.7 MG/DL (8.5-10.1); CARBON DIOXIDE LEVEL 26 MEQ/L (21-32); CHLORIDE LEVEL 108 MEQ/L (98-107); CREATININE FOR GFR 0.75 MG/DL (0.55-1.30); GLOMERULAR FILTRATION RATE > 60.0 (>58); GLUCOSE, FASTING 84 MG/DL (70-100); LIPASE 118 U/L (73-393); POTASSIUM SERUM 4.1 MEQ/L (3.5-5.1); SODIUM LEVEL 138 MEQ/L (136-145); TOTAL PROTEIN 7.2 GM/DL (6.4-8.2)
--- NOTE | 2021-03-26 13:16 | REP ---
INDICATION: left flank pain r/o stone. COMPARISON: Pelvic ultrasound 10/28/2019 TECHNIQUE: Noncontrast scanning through the abdomen and pelvis with coronal and sagittal reconstructions provided. FINDINGS: CT abdomen: Of the lung bases are clear. The heart is not enlarged. There is no pericardial thickening or effusion. I see no hiatal hernia. There has been gastric bypass with surgical clips and rajni about the stomach. There is no hepatosplenomegaly, focal hepatic or splenic lesion nor intrahepatic biliary dilatation. Clips from prior cholecystectomy are noted. Common duct has normal post cholecystectomy appearance in the josefina hepatis and pancreatic head without a calcification noted within it. Pancreas without ductal dilatation, calcification, mass or peripancreatic fluid/adenopathy. Adrenal glands are normal. Small bowel loops and colon in the abdomen proper were acute inflammatory processes. Lung window review of all CT slices shows no perforation or free air in the or pelvis. Right kidney shows no stone, mass, cyst, hydronephrosis or hydroureter. I see no right ureteral stone. Left kidney shows no stone, hydronephrosis or mass no perinephric edema. A small extrarenal pelvis course of the ureter the bladder shows no dilatation or ureteral stone. The aorta has a few scattered calcifications without aneurysm. There is slight levorotatory curve the thoracolumbar junction no compression deformity or destructive lesion in the spine. The lower ribs are unremarkable. CT pelvis: Sacrum, SI joints pelvis and hips are acute bladder shows only small of urine volume within but no gross mass, stone, layered debris, dilated distal ureter or ureteral stone. Fluid-filled bowel loops in the deep pelvis noted without dilatation. Cecum unremarkable. No pericecal inflammatory change or adenopathy. No definite visualization of the appendix. Uterus anteverted, somewhat globular. No definite adnexal mass or pelvic free fluid. There is no ventral or inguinal hernia nor pathologic sized inguinal adenopathy. IMPRESSION: 1. No CT evidence of renal, ureteral or bladder stone. No hydronephrosis or hydroureter on either side. 2. Status post cholecystectomy and gastric bypass surgery. 3. Small bowel loops, colon, solid organs in the upper abdomen are unremarkable. No ascites or free air. 4. Levoconvex curve thoracolumbar junction with some degenerative changes, mild. No compression fracture or destructive lesions. <Electronically signed by Ernie Saldaña > 03/26/21 1316
[2021-03-26 13:58] VITALS: BP 109/72
== END 2021-03-26 13:56 | disposition home or self-care (01) ==
LOC: M ED 09:53
DX: R10.9 Unspecified abdominal pain (principal); R35.0 Frequency of micturition; K21.9 Gastro-esophageal reflux disease without esophagitis; Z98.84 Bariatric surgery status

== ENCOUNTER → 2021-04-02 | Outpatient (REF) | payer OTHER ==
[~2021-04-02] MED LIST changes: +CIPR-249 PO; +FLAG500T PO; +PANT40TA29; +PRAMIPEXOLE
== END ==
LOC: M SFHCWAGY 18:12
PROVIDERS: ATTEND Nurse Practitioner Women's Health
DX: Z12.4 Encounter for screening for malignant neoplasm of cervix (principal)
CPT/HCPCS: 87624; G0123

== ENCOUNTER → 2021-04-02 | Outpatient (CLI) | payer OTHER ==
--- NOTE | 2021-04-02 16:28 | REPMRS ---
Patient History The patient states she had a clinical breast exam in March 2021. Family history of pancreatic cancer at age 78 in paternal grandfather. Patient states no breast complaints today. Patient has signed MRS History Sheet. Digital Woman Screen Mammo: April 02, 2021 - Exam #: [id number] Bilateral CC and MLO view(s) were taken. Technologist: Nichol Haque, Technologist Prior study comparison: March 26, 2020, bilateral digital woman screen mammo performed at [facility]. February 02, 2019, bilateral digital woman screen mammo performed at [facility]. FINDINGS: The breast tissue is heterogeneously dense. This may lower the sensitivity of mammography. Screening. Digital screening (2D) mammography was performed bilaterally in the CC and MLO projections. Additionally, breast tomosynthesis (3D mammography) was performed bilaterally in the CC and MLO projections. Todays exam was compared to the prior exam/exams. By history, the patient has no complaints of a palpable breast abnormality or other significant breast complaints. The breasts are unchanged in size and shape. Once again, dense heterogenous fibroglandular elements are seen bilaterally in a stable appearing pattern but to such a degree that the sensitivity of the mammogram in detecting cancer is decreased.There are no alessandro-soft tissue densities or spiculated masses. There is no internal architectural distortion., Once again, stable benign appearing calcifications are seen. There are no suspicious alessandro-calcific clusters. Skin thickening or nipple retraction is not present. IMPRESSION: BI-RADS Category 2- Benign Findings. There is no evidence of malignant alteration of the breasts. Followup examination recommended in one year. The Volpara volumetric breast density category is C, the breasts are heterogenously dense which may obscure small masses. This mammogram was read with the assistance of TheySay,an FDA approved computer aided detection system for mammography. The lifetime Tyrer-Cuzick score is 9 % Due to the density of the breasts or Tyrer Cuzick score of 20% or greater, MRI/whole breast screening ultrasound is warranted. Negative x-ray reports should not delay surgical consultation if a dominant or clinically suspicious mass is present. Not all breast cancers can be identified by mammography. Therefore, we recommend that you continue to perform regular breast self-examination and physical examination and then promptly contact your physician of any concerns or changes. Adenosis and dense breasts may obscure an underlying neoplasm. Assessment: BI-RADS/ACR category 2 mammogram. Benign Findings. Recommendation Routine screening mammogram of both breasts in 1 year. Electronically Signed By: Frandy Villarreal DO 04/02/21 5943
== END ==
LOC: M WHC 14:52
PROVIDERS: ATTEND Nurse Practitioner Women's Health
DX: Z12.31 Encounter for screening mammogram for malignant neoplasm of breast (principal)

== ENCOUNTER → 2021-06-22 | Outpatient (CLI) | payer OTHER ==
[~2021-06-22] MED LIST changes: +CYAN500T14 PO; +D31000TA2 PO; +MIRA0.254 PO; -PANT40TA29; +PANT40TA29 PO; +VITMTA PO
== END ==
LOC: M LABSMTC 11:02
PROVIDERS: ATTEND Anesthesiology
DX: Z01.812 Encounter for preprocedural laboratory examination (principal); Z20.822 Contact with and (suspected) exposure to COVID-19

== ENCOUNTER → 2021-06-23 | Outpatient (CLI) | payer OTHER ==
[2021-06-23 08:04] LABS: BASO # 0.1 10^3/uL (0.0-0.2); BASO % 1.3 % (0.0-1.0); EOS # 0.1 10^3/uL (0.0-0.5); EOS % 2.9 % (0.0-3.0); HEMATOCRIT 36.3 % (36.0-47.0); HEMOGLOBIN 11.8 g/dl (12.0-15.5); LYMPH # 1.4 10^3/uL (1.5-5.0); LYMPH % 36.5 % (24.0-44.0); MEAN CORPUSCULAR HEMOGLOBIN 28.9 pg (27.0-33.0); MEAN CORPUSCULAR HGB CONC 32.5 g/dl (32.0-36.5); MEAN CORPUSCULAR VOLUME 88.8 fl (80.0-96.0); MONO # 0.3 10^3/uL (0.0-0.8); MONO % 8.8 % (2.0-8.0); NEUTROPHILS # 1.9 10^3/uL (1.5-8.5); NEUTROPHILS % 50.2 % (36.0-66.0); PLATELET COUNT, AUTOMATED 281 10^3/uL (150-450); RED BLOOD COUNT 4.09 10^6/uL (4.00-5.40); WHITE BLOOD COUNT 3.7 10^3/uL (4.0-10.0)
[2021-06-23 08:35] LABS: ALBUMIN 3.4 GM/DL (3.2-5.2); BLOOD UREA NITROGEN 10 MG/DL (7-18); CALCIUM LEVEL 8.7 MG/DL (8.5-10.1); CARBON DIOXIDE LEVEL 29 MEQ/L (21-32); CHLORIDE LEVEL 111 MEQ/L (98-107); FERRITIN 8 NG/ML (8-252); GLOMERULAR FILTRATION RATE > 60.0 (>58); GLUCOSE, FASTING 85 MG/DL (70-100); PHOSPHORUS LEVEL 3.5 MG/DL (2.5-4.9); POTASSIUM SERUM 4.3 MEQ/L (3.5-5.1); SODIUM LEVEL 142 MEQ/L (136-145)
[2021-06-23 08:42] LABS: PTH INTACT 52.7 PG/ML (18.5-88.0); TOTAL 25(OH) VITAMIN D 28.8 NG/ML (30.0-100.0)
== END ==
LOC: M LAB 07:11
PROVIDERS: ATTEND Family Medicine
DX: D50.9 Iron deficiency anemia, unspecified (principal); E55.9 Vitamin D deficiency, unspecified

== ENCOUNTER → 2021-06-24 | Outpatient (CLI) | payer OTHER ==
--- NOTE | 2021-06-24 10:23 | DEXAMM ---
INDICATION: ESTROGEN DEFICIENCY. COMPARISON: None. TECHNIQUE: Bone density was measured using dual-energy x-ray absorptiometry (DEXA). FINDINGS: AP SPINE L1-L4 BMD 1.159 g/cm2 Young Adult T-Score -0.3 Age Matched Z-Score -0.2. LT FEMUR, TOTAL BMD 0.850 g/cm2 Young Adult T-Score -1.3 Age Matched Z-Score -0.9. LT NECK BMD 0.825 g/cm2 Young Adult T-Score -1.5 Age Matched Z-Score -0.9. RT FEMUR, TOTAL BMD 0.937 g/cm2 Young Adult T-Score -0.6 Age Matched Z-Score -0.2. RT NECK BMD 0.840 g/cm2 Young Adult T-Score -1.4 Age Matched Z-Score -0.8. IMPRESSION: There is normal bone density of the spine. There is low bone density of the left hip. There is low bone density of the right hip. FOLLOW-UP: Recommendation for the next bone density exam: 2 years. <Electronically signed by David Oquendo > 06/24/21 6298
== END ==
LOC: M WHC 09:16
PROVIDERS: ATTEND Family Medicine
DX: E28.39 Other primary ovarian failure (principal); M85.851 Other specified disorders of bone density and structure, right thigh; M85.852 Other specified disorders of bone density and structure, left thigh

== ENCOUNTER 2021-06-26 07:49 | Day surgery (SDC) | payer OTHER ==
[~2021-06-26] VITALS: Ht 162.6 cm; Wt 68.0 kg
[~2021-06-26 07:49] MED LIST changes: +LR 1,000 ML IV ONE; +ceFAZolin SOD 2 GM in IV 1 EA IV ONE
--- OUTSIDE RECORDS SUMMARY | 2021-06-26 07:53 | CCD ---
Author Author [facility] Organization [facility] Address Unknown Phone Unavailable Care Team Providers Care Drill Rig Operator Helper Name Role Phone Harjinder Barrera Unavailable PROBLEMS Type Condition ICD9-CM Code IIZ15-IU Code Onset Dates Condition S tatus W/U Status Risk SNOMED Code Notes Problem Iron deficiency anemia, unspecified iron deficiency an emia type D50.9 Active confirmed 79166119 Problem Chronic leukopenia D72.819 Active confirmed 04475553 Problem S/P gastric bypass Z98.84 Active confirmed 6 73711788 Problem [place] disease E80.4 Active confirmed 275 03856 Problem Breast cancer screening Z12.39 Active confirmed 854991043 Problem Cervical cancer screening Z12.4 Active confirmed 897092059 Problem Palpitations R00.2 Active confirmed 9095904 2 Problem Non-seasonal allergic rhinitis, unspecified trigger J30.89 Active confirmed 44532468 Problem B12 deficiency E53.8 Active confirmed 94174 4004 Problem Dyspepsia R10.13 Active confirmed 749915015 Problem Vitamin D deficiency E55.9 Active confirmed 59480927 Problem Lumbar spondylosis M47.816 Active confirmed 223333182 Problem Bicipital tendinitis, right shoulder M75.21 Act tono confirmed 652045077 Problem Leg cramps, sleep related G47.62 Active confirmed 095468004 Problem FH: lung cancer Z80.1 Active confirmed 4290 90421 ALLERGIES No Known Allergies ENCOUNTERS from 1975 to 2021-06-01 Encounter Location Date Provider Diagnosis [address] [phone] [place] [address] May, Harjinder Barrera IMMUNIZATIONS Vaccine Route Administration Date Status Influenza 18 yrs & older Flublok IM Intramuscular Jul 12, 2019 Administered MMR 0.5mL IM Intramuscular December 08, 2010 Administered Influenza Pharmacy Given IM Intramuscular Jul 21, 2018 Admini stered Influenza 6mo & up Fluzone IM Intramuscular Aug 22, 2017 Admi nistered Influenza 6mo & up Fluzone IM Intramuscular Sep 10, 2016 Admi nistered Influenza 6mo & up Fluzone Unknown December 10, 2015 Other s Influenza 6mo & up Fluzone Unknown Aug 26, 2014 Refus ed SOCIAL HISTORY Tobacco Use: Social History Observation Description Date Details (start date - stop date) Former Smoker Sex Assigned At : Social History Observation Description Sex Assigned At Unknown Education: Question Answer Notes Level of Education: College Bachelors degree Audit Question Answer Notes Total Score: 1 Interpretation: Alcohol Education Language: Question Answer Notes Languages spoken: Icelandic Uatsdin: Question Answer Notes Uatsdin No scientology beliefs that would impact health care. Sexual Hx: Question Answer Notes Had sex in the last 12 months (vaginal, oral, or anal)? Yes Have you ever had an STD? No with Men only Use protection? No Drug and Alcohol Question Answer Notes Total Score: 0 Interpretation: No problems reported Alcohol Screening: Question Answer Notes Did you have a drink containing alcohol in the past year? Ye s Points 3 Interpretation Positive How often did you have six or more drinks on one occas ion in the past year? Less than monthly (1 point) How many drinks did you have on a typica l day when you were drinking in the past year? 1 or 2 (0 points) How often did you have a drink containing alcohol in t he past year? Two to four times a month (2 points) BMI Care Goal Follow-Up Question Answer Notes Above Normal BMI Follow-Up Giving encouragement to exercise Tobacco Use: Question Answer Notes Are you a: former smoker How long has it been since you last smoked? > 10 years REASON FOR REFERRAL No Information VITAL SIGNS No information MEDICATIONS Medication SIG (Take, Route, Frequency, Duration) Notes Start Da te End Date Status Cetirizine HCl 10 MG 1 tablet Orally Once a day for 90 day(s) Active Pantoprazole Sodium 40 MG 1 tablet Orally every morning for 90 day(s) Active Voltaren 1 % 4 gm Transdermal QID to L shoulder for 30 day(s) Active Slow Iron 160 (50 Fe) MG 1 tablet Orally every other day for 90 day(s ) Active Pramipexole Dihydrochloride 0.25 MG 1 tablet Orally QHS for 90 day(s) Active Multivitamins Complete 2 tablets by mouth Once a day (Dr. Luo) Active Tums Ultra 1000 1000 MG 1 tablet Orally at bedtime for 90 day(s) Feb, Active Cholecalciferol 5000 UNIT 2 capsules Orally Once a day for 30 day(s) Active Fluticasone Propionate 50 MCG/ACT 2 sprays in each nos tril Nasally every morning for 90 day(s) Active Vitamin B-12 1000 MCG 1 tablet Orally bid for 30 day(s) Active PROCEDURES No Information RESULTS No Results REASON FOR VISIT Therapy MEDICAL (GENERAL) HISTORY Type Description Date Medical History obesity s/p gastric bypass 07/2011 Medical History allergic rhinitis Medical History Gilbert's disease Medical History history of recurrent UTI-Sep negative bilateral renal ultrasound, PVR and VCUG Medical History leukopenia, chronic Medical History h/o MDD/chronic insomnia Medical History B12 deficiency Medical History GERD/dyspepsia Medical History mild Raynaud's syndrome Medical History davis hicks 9.91 % 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 Luo Surgical History NovaSure Ablation - Dr Tuttle 10/2013 Surgical History lasik surgery will. 12/2015 Hospitalization History above surgeries Goals Section No Information Health Concerns No Information MEDICAL EQUIPMENT No Information MENTAL STATUS No Information FUNCTIONAL STATUS No Information ASSESSMENTS No Information PLAN OF TREATMENT Next Appt Details Provider Name:Harjinder Barrera, 2021-06-22 0 3:00:00 PM, [address] [place] [address], , [place], [address], Provider Name:Fatuma Bae, 2022-04-05 02:00:00 PM, [facility], , [place], [address], Insurance Providers Payer Name Payer Address Payer Phone Insured Name Patient Relati onship to Insured Coverage Start Date Coverage End Date [facility] [address] [address] [facility] [id number] [place] AND[place] self
--- OUTSIDE RECORDS SUMMARY | 2021-06-26 07:53 | CCD ---
Author Author [facility] Organization [facility] Address Unknown Phone Unavailable Care Team Providers Care Eye Physician Name Role Phone Harjinder Barrera Unavailable PROBLEMS Type Condition ICD9-CM Code [id number] Code Onset Dates Condition S tatus W/U Status Risk SNOMED Code Notes Problem Iron deficiency anemia, unspecified iron deficiency an emia type D50.9 Active confirmed 86455122 Problem Chronic leukopenia D72.819 Active confirmed 00102861 Problem S/P gastric bypass Z98.84 Active confirmed 6 25338273 Problem [place] disease E80.4 Active confirmed 275 99340 Problem Breast cancer screening Z12.39 Active confirmed 674861804 Problem Cervical cancer screening Z12.4 Active confirmed 813391653 Problem Palpitations R00.2 Active confirmed 0041782 2 Problem Non-seasonal allergic rhinitis, unspecified trigger J30.89 Active confirmed 93183917 Problem B12 deficiency E53.8 Active confirmed 48139 4004 Problem Dyspepsia R10.13 Active confirmed 532539245 Problem Vitamin D deficiency E55.9 Active confirmed 03656591 Problem Lumbar spondylosis M47.816 Active confirmed 991146534 Problem Bicipital tendinitis, right shoulder M75.21 Act tono confirmed 969105583 Problem Leg cramps, sleep related G47.62 Active confirmed 099312581 Problem FH: lung cancer Z80.1 Active confirmed 4290 62312 ALLERGIES No Known Allergies ENCOUNTERS from 1975 to 2021-05-19 Encounter Location Date Provider Diagnosis [address] [phone] [place] [address] May, Harjinder Barrera IMMUNIZATIONS Vaccine Route Administration Date Status Influenza Pharmacy Given IM Intramuscular Jul 21, 2018 Admini stered Influenza 18 yrs & older Flublok IM Intramuscular Jul 12, 2019 Administered MMR 0.5mL IM Intramuscular December 08, 2010 Administered Influenza 6mo & up Fluzone IM Intramuscular [...] Education Language: Question Answer Notes Languages spoken: Fijian Orthodoxy: Question Answer Notes Orthodoxy No congregation beliefs that would impact health care. Sexual [...] Notes Start Da te End Date Status Pantoprazole Sodium 40 MG 1 tablet Orally every morning for 90 day(s) Active Cholecalciferol 5000 UNIT 2 capsules Orally Once a day for 30 day(s) Active Tums Ultra 1000 1000 MG 1 tablet Orally at bedtime for 90 day(s) Feb, Active Cetirizine HCl 10 MG 1 tablet Orally Once a day for 90 day(s) Active Fluticasone Propionate 50 MCG/ACT 2 sprays in each nos tril Nasally every morning for 90 day(s) Active Pramipexole Dihydrochloride 0.25 MG 1 tablet Orally QHS for 90 day(s) Active Multivitamins Complete 2 tablets by mouth Once a day (Dr. Luo) Active Voltaren 1 % 4 gm Transdermal QID to L shoulder for 30 day(s) Active Vitamin B-12 1000 MCG 1 tablet Orally bid for 30 day(s) Active Slow Iron 160 (50 Fe) MG 1 tablet Orally every other day for 90 day(s ) Active PROCEDURES No Information RESULTS No Results REASON FOR VISIT Arm MEDICAL (GENERAL) HISTORY Type Description Date Medical [...] year history Surgical History lipoma removed from back-[place] 12/04/10 Surgical History cholecystectomy Surgical History C [...] PLAN OF TREATMENT Next Appt Details Provider Name:Hellen Tuttle, 2021-05-25 1 0:40:00 AM, [address] [place] [address], , [place], [address], Provider Name:Harjinder Barrera, 2021-06-22 0 3:00:00 PM, [address] [facility], , [place], [address], Provider Name:Fatuma Bae, 2022-04-05 02:00:00 PM, [address] [facility], , [place], [address], Insurance Providers Payer Name Payer Address Payer Phone Insured Name Patient Relati onship to Insured Coverage Start Date Coverage End Date [facility] [address] [address] [facility] [id number] [place] AND[place] self
--- OUTSIDE RECORDS SUMMARY | 2021-06-26 07:53 | CCD ---
Author Author [facility] Organization [facility] Address Unknown Phone Unavailable Care Team Providers Care Senior Analyst Developer Name Role Phone Hellen Tuttle Unavailable PROBLEMS Type Condition ICD9-CM Code IXS40-CD Code Onset Dates Condition S tatus W/U Status Risk SNOMED Code Notes Problem Iron deficiency anemia, unspecified iron deficiency an emia type D50.9 Active confirmed 39430621 Problem Chronic leukopenia D72.819 Active confirmed 48908934 Problem S/P gastric bypass Z98.84 Active confirmed 6 91098645 Problem [place] disease E80.4 Active confirmed 275 31830 Problem Breast cancer screening Z12.39 Active confirmed 560576337 Problem Cervical cancer screening Z12.4 Active confirmed 720463278 Problem Palpitations R00.2 Active confirmed 6827306 2 Problem Non-seasonal allergic rhinitis, unspecified trigger J30.89 Active confirmed 39835866 Problem B12 deficiency E53.8 Active confirmed 81557 4004 Problem Dyspepsia R10.13 Active confirmed 592873371 Problem Vitamin D deficiency E55.9 Active confirmed 32324372 Problem Lumbar spondylosis M47.816 Active confirmed 083803321 Problem Bicipital tendinitis, right shoulder M75.21 Act tono confirmed 531635891 Problem Leg cramps, sleep related G47.62 Active confirmed 793862967 Problem FH: lung cancer Z80.1 Active confirmed 4290 90959 ALLERGIES No Known Allergies ENCOUNTERS from 1975 to 2021-06-10 Encounter Location Date Provider Diagnosis [facility] [address] [place] [address] [place] [address] Jun, [facility] Tuttle IMMUNIZATIONS Vaccine Route Administration Date Status Influenza [...] Education Language: Question Answer Notes Languages spoken: Surinamese Protestant: Question Answer Notes Protestant No shinto beliefs that would impact health care. Sexual [...] Information RESULTS No Results REASON FOR VISIT 06/26/21 SURG AUTH MEDICAL (GENERAL) HISTORY Type Description Date Medical [...] year history Surgical History lipoma removed from back-[place] 12/04/10 Surgical History cholecystectomy Surgical History C [...] OF TREATMENT Next Appt Details Provider Name:Harjinder Barrear, 2021-06-22 0 3:00:00 PM, [address] [facility], , [place], [address], Provider Name:Hellen Tuttle, 2021-06-26 1 0:00:00 AM, [address] [facility], , [place], [address], Provider Name:Hellen Tuttle, 2021-07-14 1 0:40:00 AM, [address] [place] [address], , [place], [address], Provider Name:Hellen Clancyn, 2021-08-04 1 2:00:00 AM, [address] [place] [address], , [place], [address], Provider Name:Fatuma Bae, 2022-04-05 02:00:00 PM, [address] [place] [address], , [place], [address], Insurance Providers Payer Name Payer Address Payer Phone Insured Name Patient Relati onship to Insured Coverage Start Date Coverage End Date [facility] [address] [address] [facility] [phone] [place] self
--- OUTSIDE RECORDS SUMMARY | 2021-06-26 07:53 | CCD ---
Author Author [facility] Organization [facility] Address Unknown Phone Unavailable Care Team Providers Care Smoking Pipe Liner Name Role Phone Kelsey RIDLEY NP Unavailable Unavailable LAROCKKelsey NP Unavailable Unavailable LAROCK, Kelsey DENIS NP Unavailable Unavailable LAROCKKelsey NP Unavailable Unavailable LAROCKKelsey NP Unavailable Unavailable LAROCKKelsey NP Unavailable Unavailable LAROCKKelsey NP Unavailable Unavailable LAROCKKelsey NP Unavailable Unavailable LAROCKKelsey NP Unavailable Unavailable LAROCKKelsey NP Unavailable Unavailable LAROCKKelsey NP Unavailable Unavailable LAROCKKelsey NP Unavailable Unavailable LAROCKKelsey NP Unavailable Unavailable LAROCKKelsey NP Unavailable Unavailable CANDICEOCKKelsey NP Unavailable Unavailable CANDICEOCKKelsey NP Unavailable Unavailable LAROCKKelsey NP Unavailable Unavailable CANDICEOCKKelsey NP Unavailable Unavailable LAROCK, J CIRA SENIOR JAVA PROGRAMMER Unavailable Unavailable LAROCK, Kelsey DENIS SENIOR JAVA PROGRAMMER Unavailable Unavailable LAROCK, Kelsey DENIS SENIOR JAVA PROGRAMMER Unavailable Unavailable LAROCK, Kelsey DENIS SENIOR JAVA PROGRAMMER Unavailable Unavailable MARTIN, G EDWARD RPA Unavailable Unavailable MARTIN, G EDWARD RPA Unavailable Unavailable MARTIN, G EDWARD RPA Unavailable Unavailable MARTIN, G EDWARD RPA Unavailable Unavailable MARTIN, G EDWARD RPA Unavailable Unavailable MARTIN, G EDWARD RPA Unavailable Unavailable MARTIN, G EDWARD RPA Unavailable Unavailable MARTIN, G EDWARD RPA Unavailable Unavailable MARTIN, G EDWARD RPA Unavailable Unavailable MARTIN, G EDWARD RPA Unavailable Unavailable MARTIN, G EDWARD RPA Unavailable Unavailable MARTIN, G EDWARD RPA Unavailable Unavailable MARTIN, G EDWARD RPA Unavailable Unavailable MARTIN, G EDWARD RPA Unavailable Unavailable MARTIN, G EDWARD RPA Unavailable Unavailable MARTIN, G EDWARD RPA Unavailable Unavailable MARTIN, G EDWARD RPA Unavailable Unavailable MARTIN, G EDWARD RPA Unavailable Unavailable MARTIN, G EDWARD RPA Unavailable Unavailable MARTIN, G EDWARD RPA Unavailable Unavailable MARTIN, G EDWARD RPA Unavailable Unavailable MARTIN, G EDWARD RPA Unavailable Unavailable MARTIN, G EDWARD RPA Unavailable Unavailable MARTIN, G EDWARD RPA Unavailable Unavailable MARTIN, G EDWARD RPA Unavailable Unavailable MARTIN, G EDWARD RPA Unavailable Unavailable MARTIN, G EDWARD RPA Unavailable Unavailable MARTIN, G EDWARD RPA Unavailable Unavailable MARTIN, G EDWARD RPA Unavailable Unavailable MARTIN, G EDWARD RPA Unavailable Unavailable MARTIN, G EDWARD RPA Unavailable Unavailable MARTIN, G EDWARD RPA Unavailable Unavailable MARTIN, G EDWARD RPA Unavailable Unavailable MARTIN, G EDWARD RPA Unavailable Unavailable MARTIN, G EDWARD RPA Unavailable Unavailable Re-disclosure Warning The records that you are about to access may contain information from federally-assisted alcohol or drug abuse programs. If such information is present, then the following federally mandated warning applies: This information has been disclosed to you from records protected by federal confidentiality rules (42 CFR part 2). The federal rules prohibit you from making any further disclosure of this information unless further disclosure is expressly permitted by the written consent of the person to whom it pertains or as otherwise permitted by 42 CFR part 2. A general authorization for the release of medical or other information is NOT sufficient for this purpose. The Federal rules restrict any use of the information to criminally investigate or prosecute any alcohol or drug abuse patient.The records that you are about to access may contain highly sensitive health information, the redisclosure of which is protected by Article 27-F of the [facility] Public Health law. If you continue you may have access to information: Regarding HIV / AIDS; Provided by facilities licensed or operated by the [facility] Office of Mental Health; or Provided by the [facility] Office for People With Developmental Disabilities. If such information is present, then the following [facility] mandated warning applies: This information has been disclosed to you from confidential records which are protected by state law. State law prohibits you from making any further disclosure of this information without the specific written consent of the person to whom it pertains, or as otherwise permitted by law. Any unauthorized further disclosure in violation of state law may result in a fine or fpc sentence or both. A general authorization for the release of medical or other information is NOT sufficient authorization for further disc losure. Family History Family Member Name Family Member Gender Family Member Status Date o f Status Description Data Source(s) Unknown Unknown Problem [facility] ([facility], [facility]) father Encounters Encounter Providers Location Date Indications Data Source(s ) Unknown [address] [facility] [id number] 06/10/2021 12:00:00 AM EDT eCW1 ([facility]) Unknown [address] [facility] [address] 06/01/2021 12:00:00 AM EDT eCW1 ([facility]) Outpatient [address] [facility] [address] 05/18/2021 12:00:00 AM EDT eCW1 ([facility]) Unknown [address] [facility] [address] 05/18/2021 12:00:00 AM EDT eCW1 ([facility]) Outpatient [address] [facility] [place] [address] 04/02/2021 12:00:00 AM EDT eCW1 ([facility]) Outpatient Attender: TERENCE MARTIN RPA 03/25 04:25:48 PM EDT - 03/25/2021 05:20:46 PM EDT [facility] ([facility] ) [place] [address] [facility] [place] [address] 03/25/2021 12:00:00 AM EDT eCW1 ([facility]) [place] [address] [facility] [address] 03/24/2021 12:00:00 AM EDT eCW1 ([facility]) [place] [address] [facility] [address] 03/23/2021 12:00:00 AM EDT eCW1 ([facility]) [place] [address] [facility] [address] 02/23/2021 12:00:00 AM EDT eCW1 ([facility]) Outpatient Attender: CIRA RIDLEY NP 01/04 08:09:50 AM EDT - 01/22/2021 08:32:35 AM EDT [facility] ([facility] ) [place] [address] [facility] [place] [address] 01/01/2021 12:00:00 AM EDT eCW1 ([facility]) [place] [address] [facility] [place] [address] 12/30/2020 12:00:00 AM EDT eCW1 ([facility]) Unknown [address] [facility] [place] [address] 12/09/2020 12:00:00 AM EDT eCW1 ([facility]) Unknown [address] [facility] [place] [address] 12/04/2020 12:00:00 AM EDT eCW1 ([facility]) Unknown [address] [facility] [place] [address] 11/06/2020 12:00:00 AM EST eCW1 ([facility]) [place] [address] [facility] [place] [address] 11/05/2020 12:00:00 AM EST eCW1 ([facility]) [place] [address] [facility] [address] 11/05/2020 12:00:00 AM EST eCW1 ([facility]) [place] [address] [facility] [place] [address] 11/04/2020 12:00:00 AM EST eCW1 ([facility]) Unknown [address] [facility] [place] [address] 11/01/2020 12:00:00 AM EST eCW1 ([facility]) Out[place] [address] [facility] [place] [address] 10/28/2020 12:00:00 AM EST eCW1 ([facility]) Unknown [address] [facility] [place] [address] 10/28/2020 12:00:00 AM EST eCW1 ([facility]) [place] [address] [facility] [place] [address] 10/28/2020 12:00:00 AM EST eCW1 ([facility]) Out[place] [address] [facility] [place] [address] 10/20/2020 12:00:00 AM EST eCW1 ([facility]) Unknown [address] [facility] [place] [address] 08/27/2020 12:00:00 AM EST eCW1 ([facility]) Unknown [address] [facility] [place] [address] 07/10/2020 12:00:00 AM EST eCW1 ([facility]) [place] [address] [facility] [place] [address] 06/19/2020 12:00:00 AM EDT eCW1 ([facility]) Unknown [address] [facility] [place] [address] 06/19/2020 12:00:00 AM EDT eCW1 ([facility]) [place] [address] [facility] [place] [address] 06/19/2020 12:00:00 AM EDT eCW1 ([facility]) Unknown [address] [facility] [place] [address] 06/19/2020 12:00:00 AM EDT eCW1 ([facility]) Immunizations Vaccine Date Status Description Data Source(s) COVID-19 VACCINE Kervin 01/23/2021 12:00:00 AM EDT completed [facility] Vaccine Series Complete: YESThis Data wa s Submitted to [facility] Via [employer]. Medications Medication Brand Name Start Date Product Form Dose Route Admi nistrative Instructions Pharmacy Instructions Status Indications Reaction Description Data Source(s) Calcium Carbonate 1000 MG Chewable Tablet [Tums] Tums Ultra 1000 1000 MG Tums Ultra 1000 1000 MG 02/23/2021 12:00:00 AM EDT 1.0 {tablet} active Tums Ultra 1000 1000 MG eCW1 ([facility]) Calcium Carbonate 1000 MG Chewable Tablet [Tums] Tums Ultra 1000 1000 MG Tums Ultra 1000 1000 MG 02/23/2021 12:00:00 AM EDT 1.0 {tablet} active Tums Ultra 1000 1000 MG eCW1 ([facility]) Calcium Carbonate 1000 MG Chewable Tablet [Tums] Tums Ultra 1000 1000 MG Tums Ultra 1000 1000 MG 02/23/2021 12:00:00 AM EDT 1.0 {tablet} active Tums Ultra 1000 1000 MG eCW1 ([facility]) Calcium Carbonate 1000 MG Chewable Tablet [Tums] Tums Ultra 1000 1000 MG Tums Ultra 1000 1000 MG 02/23/2021 12:00:00 AM EDT 1.0 {tablet} active Tums Ultra 1000 1000 MG eCW1 ([facility]) Calcium Carbonate 1000 MG Chewable Tablet [Tums] Tums Ultra 1000 1000 MG Tums Ultra 1000 1000 MG 02/23/2021 12:00:00 AM EDT 1.0 {tablet} active Tums Ultra 1000 1000 MG eCW1 ([facility]) Calcium Carbonate 1000 MG Chewable Tablet [Tums] Tums Ultra 1000 1000 MG Tums Ultra 1000 1000 MG 02/23/2021 12:00:00 AM EDT 1.0 {tablet} active Tums Ultra 1000 1000 MG eCW1 ([facility]) Calcium Carbonate 1000 MG Chewable Tablet [Tums] Tums Ultra 1000 1000 MG Tums Ultra 1000 1000 MG 02/23/2021 12:00:00 AM EDT 1.0 {tablet} active Tums Ultra 1000 1000 MG eCW1 ([facility]) Calcium Carbonate 1000 MG Chewable Tablet [Tums] Tums Ultra 1000 1000 MG Tums Ultra 1000 1000 MG 02/23/2021 12:00:00 AM EDT 1.0 {tablet} active Tums Ultra 1000 1000 MG eCW1 ([facility]) Calcium Carbonate 1000 MG Chewable Tablet [Tums] Tums Ultra 1000 1000 MG Tums Ultra 1000 1000 MG 02/23/2021 12:00:00 AM EDT 1.0 {tablet} active Tums Ultra 1000 1000 MG eCW1 ([facility]) Metronidazole 500 MG Oral Tablet [Flagyl] Flagyl 500 MG Flag yl 500 MG 10/29/2020 12:00:00 AM EST 1.0 {tablet} suspended Flagyl 500 MG eCW1 ([facility]) Metronidazole 500 MG Oral Tablet [Flagyl] Flagyl 500 MG Flag yl 500 MG 10/29/2020 12:00:00 AM EST 1.0 {tablet} active F lagyl 500 MG eCW1 ([facility]) Metronidazole 500 MG Oral Tablet [Flagyl] Flagyl 500 MG Flag yl 500 MG 10/29/2020 12:00:00 AM EST 1.0 {tablet} active F lagyl 500 MG eCW1 ([facility]) Metronidazole 500 MG Oral Tablet [Flagyl] Flagyl 500 MG Flag yl 500 MG 10/29/2020 12:00:00 AM EST 1.0 {tablet} active F lagyl 500 MG eCW1 ([facility]) Metronidazole 500 MG Oral Tablet [Flagyl] Flagyl 500 MG Flag yl 500 MG 10/29/2020 12:00:00 AM EST 1.0 {tablet} active F lagyl 500 MG eCW1 ([facility]) Metronidazole 500 MG Oral Tablet [Flagyl] Flagyl 500 MG Flag yl 500 MG 10/29/2020 12:00:00 AM EST 1.0 {tablet} active F lagyl 500 MG eCW1 ([facility]) Metronidazole 500 MG Oral Tablet [Flagyl] Flagyl 500 MG Flag yl 500 MG 10/29/2020 12:00:00 AM EST 1.0 {tablet} active F lagyl 500 MG eCW1 ([facility]) Metronidazole 500 MG Oral Tablet [Flagyl] Flagyl 500 MG Flag yl 500 MG 10/29/2020 12:00:00 AM EST 1.0 {tablet} active F lagyl 500 MG eCW1 ([facility]) Metronidazole 500 MG Oral Tablet [Flagyl] Flagyl 500 MG Flag yl 500 MG 10/29/2020 12:00:00 AM EST 1.0 {tablet} suspended Flagyl 500 MG eCW1 ([facility]) Metronidazole 500 MG Oral Tablet [Flagyl] Flagyl 500 MG Flag yl 500 MG 10/29/2020 12:00:00 AM EST 1.0 {tablet} active F lagyl 500 MG eCW1 ([facility]) Metronidazole 500 MG Oral Tablet [Flagyl] Flagyl 500 MG Flag yl 500 MG 10/29/2020 12:00:00 AM EST 1.0 {tablet} active F lagyl 500 MG eCW1 ([facility]) Metronidazole 500 MG Oral Tablet [Flagyl] Flagyl 500 MG Flag yl 500 MG 10/29/2020 12:00:00 AM EST 1.0 {tablet} active F lagyl 500 MG eCW1 ([facility]) Metronidazole 500 MG Oral Tablet [Flagyl] Flagyl 500 MG Flag yl 500 MG 10/29/2020 12:00:00 AM EST 1.0 {tablet} active F lagyl 500 MG eCW1 ([facility]) Fluticasone Propionate 50 MCG/ACT Fluticasone Propionate 50 MCG/ACT 10/20/2020 12:00:00 AM EST 2.0 {sprays_in_each_nostril} act tono Fluticasone Propionate 50 MCG/ACT eCW1 ([facility]) Fluticasone Propionate 50 MCG/ACT Fluticasone Propionate 50 MCG/ACT 10/20/2020 12:00:00 AM EST 2.0 {sprays_in_each_nostril} act tono Fluticasone Propionate 50 MCG/ACT eCW1 ([facility]) Fluticasone Propionate 50 MCG/ACT Fluticasone Propionate 50 MCG/ACT 10/20/2020 12:00:00 AM EST 2.0 {sprays_in_each_nostril} act tono Fluticasone Propionate 50 MCG/ACT eCW1 ([facility]) Fluticasone Propionate 50 MCG/ACT Fluticasone Propionate 50 MCG/ACT 10/20/2020 12:00:00 AM EST 2.0 {sprays_in_each_nostril} act tono Fluticasone Propionate 50 MCG/ACT eCW1 ([facility]) Fluticasone Propionate 50 MCG/ACT Fluticasone Propionate 50 MCG/ACT 10/20/2020 12:00:00 AM EST 2.0 {sprays_in_each_nostril} act tono Fluticasone Propionate 50 MCG/ACT eCW1 ([facility]) Fluticasone Propionate 50 MCG/ACT Fluticasone Propionate 50 MCG/ACT 10/20/2020 12:00:00 AM EST 2.0 {sprays_in_each_nostril} act tono Fluticasone Propionate 50 MCG/ACT eCW1 ([facility]) Fluticasone Propionate 50 MCG/ACT Fluticasone Propionate 50 MCG/ACT 10/20/2020 12:00:00 AM EST 2.0 {sprays_in_each_nostril} act tono Fluticasone Propionate 50 MCG/ACT eCW1 ([facility]) Fluticasone Propionate 50 MCG/ACT Fluticasone Propionate 50 MCG/ACT 10/20/2020 12:00:00 AM EST 2.0 {sprays_in_each_nostril} act tono Fluticasone Propionate 50 MCG/ACT eCW1 ([facility]) Fluticasone Propionate 50 MCG/ACT Fluticasone Propionate 50 MCG/ACT 10/20/2020 12:00:00 AM EST 2.0 {sprays_in_each_nostril} act tono Fluticasone Propionate 50 MCG/ACT eCW1 ([facility]) Fluticasone Propionate 50 MCG/ACT Fluticasone Propionate 50 MCG/ACT 10/20/2020 12:00:00 AM EST 2.0 {sprays_in_each_nostril} act tono Fluticasone Propionate 50 MCG/ACT eCW1 ([facility]) Fluticasone Propionate 50 MCG/ACT Fluticasone Propionate 50 MCG/ACT 10/20/2020 12:00:00 AM EST 2.0 {sprays_in_each_nostril} act tono Fluticasone Propionate 50 MCG/ACT eCW1 ([facility]) Fluticasone Propionate 50 MCG/ACT Fluticasone Propionate 50 MCG/ACT 10/20/2020 12:00:00 AM EST 2.0 {sprays_in_each_nostril} act tono Fluticasone Propionate 50 MCG/ACT eCW1 ([facility]) Fluticasone Propionate 50 MCG/ACT Fluticasone Propionate 50 MCG/ACT 10/20/2020 12:00:00 AM EST 2.0 {sprays_in_each_nostril} act tono Fluticasone Propionate 50 MCG/ACT eCW1 ([facility]) Insurance Providers Payer name Policy type / Coverage type Policy ID Covered libertarian ID Covered libertarian's relationship to stafford Policy Stafford Plan Information [facility] [employer] [id number] Self [id number] [facility] [employer] [id number] Self [id number] [employer] [place] 302/307 [id number] SP [id number] [employer] [place] P[place] 302/[id number] SP [id number] [facility] [place] [id number] SP [id number] ANSI-Commercial [id number] [facility] [place] [id number] SP [id number] ANSI-Commercial [id number] ANSI-Commercial [id number] ANSI-Commercial [id number] ANSI-Commercial [id number] ANSI-Commercial [id number] ANSI-Commercial [id number] [employer] Ppo/Pos/Nap/ Commercial [id number] Self [id number] [facility] [facility] [place] O [id number] S [id number] [facility] [id number] SP [id number] EXCELLUS BS B [id number] S [id number] Problems, Conditions, and Diagnoses Code Display Name Description Problem Type Effective Dates Data Source(s) R10.13 [id number] Dyspepsia Problem 02/23/2021 12:00:00 AM ED T eCW1 ([facility]) M75.41 [id number] Impingement syndrome of right shoulder Pr oblem 02/23/2021 12:00:00 AM EDT eCW1 ([facility]) Z80.1 [id number] FH: lung cancer Problem 10/20/2020 12:00:00 AM EST eCW1 ([facility]) J30.89 [id number] Non-seasonal allergic rhinitis, unspecifi ed trigger Problem 10/20/2020 12:00:00 AM EST eCW1 ([facility]) Surgeries/Procedures No Information Results ID Date Data Source WWBC DIGITAL / SARAI BILATERAL MAMMO SCREENING (Ultraso und if indicated) 04/02/2021 12:00:00 AM EDT eCW1 ([facility]) Name Value Range Interpretation Code Description Data Loretta rce(s) Supporting Document(s) WWBC DIGITAL / SARAI BILAT ERAL MAMMO SCREENING (Ultrasound if indicated) eCW1 ([facility]) ID Date Data Source GENITAL CULTURE 10/28/2020 12:00:00 AM EST eCW1 ([facility]) Name Value Range Interpretation Code Description Data Loretta rce(s) Supporting Document(s) GENITAL CULTURE eCW1 ([facility]) ID Date Data Source ZONE 1 ALLERGEN 10/25/2020 12:00:00 AM EST eCW1 ([facility]) Name Value Range Interpretation Code Description Data Loretta rce(s) Supporting Document(s) . CLASS DESCRIPTION eCW1 ([facility]) <0.10 Class 0 J001-VhS D farinae Mite eCW1 ( [facility]) < 0.10 Class 0 C292-RrV Cat Epith/Dander eCW1 ([facility]) <0.10 Class 0 Z733-SsP D pteronyssinus eCW1 ([facility]) < 0.10 Class 0 V091-IcZ Dog Dander eCW1 ([facility]) < 0.10 Class 0 H702-LbQ [place] Bluegra ss eCW1 ([facility]) < 0.10 Class 0 M996-ZtX Berm[place] Grass eCW1 ([facility]) < 0.10 Class 0 B175-RkA Bahia Grass eCW1 ([facility]) < 0.10 Class 0 Q929-CsL Cockroach, Ameri can eCW1 ([facility]) < 0.10 Class 0 M003 IgE Aspergillus fumi gatu eCW1 ([facility]) < 0.10 Class 0 J540-JeK Penicillium chry sogen eCW1 ([facility]) < 0.10 Class 0 M002 IgE Cladosporium her baru eCW1 ([facility]) < 0.10 Class 0 R616-MhH Common Silver Bi rch eCW1 ([facility]) < 0.10 Class 0 H571-WdT Stemphylium Herb arum eCW1 ([facility]) < 0.10 Class 0 K939-GjS Alternaria alter alton eCW1 ([facility]) < 0.10 Class 0 S376-SlA Mucor racemosus eCW1 ([facility]) < 0.10 Class 0 Q185-YaI Maple/Adrian eCW1 ([facility]) < 0.10 Class 0 Q984-NgU [place], White eCW1 ([facility]) < 0.10 Class 0 H644-KwY [place], White eCW1 ([facility]) < 0.10 Class 0 V092-TuJ Elm, Tristanian eCW1 ([facility]) < 0.10 Class 0 O292-OwT [place] e CW1 ([facility]) < 0.10 Class 0 G899-EjQ Hazelnut Tree eCW1 ([facility]) < 0.10 Class 0 E615-PdY [place], White e CW1 ([facility]) < 0.10 Class 0 J722-TqO [place], Mountain eCW1 ([facility]) < 0.10 Class 0 M105-DvR Plantain, Englis h eCW1 ([facility]) < 0.10 Class 0 Y655-HrP Mugwort eCW1 ([facility]) < 0.10 Class 0 C896-FuJ Ragweed, Short e CW1 ([facility]) < 0.10 Class 0 R365-XbZ Nettle eCW1 ([facility]) < 0.10 Class 0 U250-CoR Pigweed, Rough e CW1 ([facility]) < 0.10 Class 0 W130-KiF Sheep [place] eCW1 ([facility]) ID Date Data Source H PYLORI SERUM QUANT IgG KIKI 10/25/2020 12:00:00 AM EST eCW1 ([facility]) Name Value Range Interpretation Code Description Data Loretta rce(s) Supporting Document(s) 0.10 0.00-0.79 H PYLORI SERUM QUANT IgG KIKI eCW1 ([facility]) ID Date Data Source RBC FOLATE PROFILE 10/25/2020 12:00:00 AM EST eCW1 ([facility]) Name Value Range Interpretation Code Description Data Loretta rce(s) Supporting Document(s) [phone] RBC FOLATE eCW1 ([facility]) 37.4 36.0-47.0 HEMATOCRIT eCW1 ([facility]) ID Date Data Source VITAMIN D 25-HYDROXY 10/25/2020 12:00:00 AM EST eCW1 ([facility]) Name Value Range Interpretation Code Description Data Loretta rce(s) Supporting Document(s) 31.4 30.0-100.0 TOTAL 25(OH) VITAMIN D eC W1 ([facility]) ID Date Data Source LIPID PANEL (CARDIAC RISK) 10/25/2020 12:00:00 AM EST eCW1 ( [facility]) Name Value Range Interpretation Code Description Data Loretta rce(s) Supporting Document(s) Triglyceride [Mass/volume] in Serum or Plasma by calculation 59 <150 TRIGLYCERIDES LEVEL eCW1 ([facility]) Cholesterol [Moles/volume] in Serum or Plasma 171 <200 CHOLESTEROL LEVEL eCW1 ([facility]) Cholesterol in HDL [Moles/volume] in Serum or Plasma 68 >40 HDL CHOLESTEROL eCW1 ([facility]) Cholesterol in LDL [Mass/volume] in Serum or Plasma by calculation 91 <100 LDL CHOLESTEROL eCW1 ([facility]) 2.514 <5 CHOLESTEROL RISK RATIO eCW1 ([facility]) 103 NON-HDL-C eCW1 ([facility]) ID Date Data Source PTH INTACT 10/25/2020 12:00:00 AM EST eCW1 ([facility]) Name Value Range Interpretation Code Description Data Loretta rce(s) Supporting Document(s) 72.2 18.5-88.0 PTH INTACT eCW1 ([facility]) ID Date Data Source VITAMIN B12 LEVEL 10/25/2020 12:00:00 AM EST eCW1 ([facility]) Name Value Range Interpretation Code Description Data Loretta rce(s) Supporting Document(s) [phone] VITAMIN B12 LEVEL eCW1 ([facility]) ID Date Data Source FERRITIN 10/25/2020 12:00:00 AM EST eCW1 ([facility]) Name Value Range Interpretation Code Description Data Loretta rce(s) Supporting Document(s) 3 9-714 FERRITIN eCW1 ([facility]) ID Date Data Source Comprehensive Metabolic Profile (CMP) 10/25/2020 12:00:00 AM EST eCW1 ([facility]) Name Value Range Interpretation Code Description Data Loretta rce(s) Supporting Document(s) 71 70-100 GLUCOSE, FASTING eCW1 ([facility]) 0.73 0.55-1.30 CREATININE FOR GFR eCW1 ([facility]) 11 7-18 BLOOD UREA NITROGEN eCW1 ([facility]) > 60.0 >58 GLOMERULAR FILTRATION RATE eCW 1 ([facility]) 4.8 3.5-5.1 POTASSIUM SERUM eCW1 ([facility]) 26 21-32 CARBON DIOXIDE LEVEL eCW1 ([facility]) 140 136-145 SODIUM LEVEL eCW1 ([facility]) 108 98-107 CHLORIDE LEVEL eCW1 ([facility]) 21 12-78 ALT/SGPT eCW1 ([facility]) 16 7-37 AST/SGOT eCW1 ([facility]) 8.4 8.5-10.1 CALCIUM LEVEL eCW1 ([facility]) 78 45-117 ALKALINE PHOSPHATASE eCW1 ([facility]) 0.8 0.2-1.0 BILIRUBIN,TOTAL eCW1 ([facility]) 6.7 6.4-8.2 TOTAL PROTEIN eCW1 ([facility]) 1.2 1.2-2.2 ALBUMIN/GLOBULIN RATIO eCW1 ([facility]) 3.6 3.2-5.2 ALBUMIN eCW1 ([facility]) ID Date Data Source CBC with Differential 10/25/2020 12:00:00 AM EST eCW1 ([facility]) Name Value Range Interpretation Code Description Data Loretta rce(s) Supporting Document(s) 6.0 4.0-10.0 WHITE BLOOD COUNT eCW1 ([facility]) 12.0 12.0-15.5 HEMOGLOBIN eCW1 ([facility]) 4.27 4.00-5.40 RED BLOOD COUNT eCW1 ([facility]) 28.1 27.0-33.0 MEAN CORPUSCULAR HEMOGLOB IN eCW1 ([facility]) 37.4 36.0-47.0 HEMATOCRIT eCW1 ([facility]) 87.6 80.0-96.0 MEAN CORPUSCULAR VOLUME e CW1 ([facility]) 273 150-450 PLATELET COUNT, AUTOMATED eCW1 ([facility]) 32.1 32.0-36.5 MEAN CORPUSCULAR HGB CONC eCW1 ([facility]) 12.5 11.5-14.5 RED CELL DISTRIBUTION WID TH eCW1 ([facility]) 8.9 2.0-8.0 MONO % eCW1 ([facility]) 32.4 24.0-44.0 LYMPH % eCW1 ([facility]) 55.4 36.0-66.0 NEUTROPHILS % eCW1 ([facility]) 1.3 0.0-1.0 BASO % eCW1 ([facility]) 1.7 0.0-3.0 EOS % eCW1 ([facility]) 3.3 1.5-8.5 NEUTROPHILS # eCW1 ([facility]) 0.1 0.0-0.5 EOS # eCW1 ([facility]) 0.5 0.0-0.8 MONO # eCW1 ([facility]) 1.9 1.5-5.0 LYMPH # eCW1 ([facility]) 0.1 0.0-0.2 BASO # eCW1 ([facility]) ID Date Data Source [id number] 08/27/2020 01:00:00 PM EST [facility] Name Value Range Interpretation Code Description Data Loretta rce(s) Supporting Document(s) SARS coronavirus 2 RNA [facility] This lab was ordered by [facility] and reported by [facility]. ID Date Data Source [id number] 06/19/2020 03:00:00 PM EDT [facility] Name Value Range Interpretation Code Description Data Loretta rce(s) Supporting Document(s) SARS coronavirus 2 RNA [facility] This lab was ordered by [facility] and reported by [facility]. ID Date Data Source Rapid Strep (Edith Strep A+ PAZ) 06/19/2020 04:28:38 AM EDT eCW1 ([facility]) Name Value Range Interpretation Code Description Data Loretta rce(s) Supporting Document(s) yes Internal Controls Perform ed (Y/N) eCW1 ([facility]) negative Result (Positive/Negative) eCW 1 ([facility]) Rapid Strep (Edith Strep A+ FI A) eCW1 ([facility]) ID Date Data Source [id number] 06/19/2020 12:00:00 AM EDT [facility] Name Value Range Interpretation Code Description Data Loretta rce(s) Supporting Document(s) SARS-CoV2 Rapid Antigen [facility] and reported by [facility]. ID Date Data Source PAP REQUEST FOR SERVICE 06/06/2020 08:58:31 AM EDT eCW1 ([facility]) Name Value Range Interpretation Code Description Data Loretta rce(s) Supporting Document(s) eCW1 ([facility]) Procedure Social History Code Duration Value Status Description Data Source(s ) Smoking 05/25/2021 12:00:00 AM EDT Former Smoker completed Former Smoker eCW1 ([facility]) Smoking 05/25/2021 12:00:00 AM EDT Former Smoker completed Former Smoker eCW1 ([facility]) Smoking 05/25/2021 12:00:00 AM EDT Former Smoker completed Former Smoker eCW1 ([facility]) Smoking 05/18/2021 12:00:00 AM EDT Former Smoker completed Former Smoker eCW1 ([facility]) Smoking 04/02/2021 12:00:00 AM EDT Former Smoker completed Former Smoker eCW1 ([facility]) Smoking 02/23/2021 12:00:00 AM EDT Former Smoker completed Former Smoker eCW1 ([facility]) Smoking 02/23/2021 12:00:00 AM EDT Former Smoker completed Former Smoker eCW1 ([facility]) Smoking 02/23/2021 12:00:00 AM EDT Former Smoker completed Former Smoker eCW1 ([facility]) Smoking 02/23/2021 12:00:00 AM EDT Former Smoker completed Former Smoker eCW1 ([facility]) Smoking 12/30/2020 12:00:00 AM EDT Former Smoker completed Former Smoker eCW1 ([facility]) Smoking 12/30/2020 12:00:00 AM EDT Former Smoker completed Former Smoker eCW1 ([facility]) Smoking 10/28/2020 12:00:00 AM EST Former Smoker completed Former Smoker eCW1 ([facility]) Smoking 10/28/2020 12:00:00 AM EST Former Smoker completed Former Smoker eCW1 ([facility]) Smoking 10/28/2020 12:00:00 AM EST Former Smoker completed Former Smoker eCW1 ([facility]) Smoking 10/28/2020 12:00:00 AM EST Former Smoker completed Former Smoker eCW1 ([facility]) Smoking 10/28/2020 12:00:00 AM EST Former Smoker completed Former Smoker eCW1 ([facility]) Smoking 10/28/2020 12:00:00 AM EST Former Smoker completed Former Smoker eCW1 ([facility]) Smoking 10/28/2020 12:00:00 AM EST Former Smoker completed Former Smoker eCW1 ([facility]) Smoking 10/28/2020 12:00:00 AM EST Former Smoker completed Former Smoker eCW1 ([facility]) Smoking 10/28/2020 12:00:00 AM EST Former Smoker completed Former Smoker eCW1 ([facility]) Smoking 10/28/2020 12:00:00 AM EST Former Smoker completed Former Smoker eCW1 ([facility]) Smoking 10/28/2020 12:00:00 AM EST Former Smoker completed Former Smoker eCW1 ([facility]) Smoking 06/19/2020 12:00:00 AM EDT Former Smoker completed Former Smoker eCW1 ([facility]) Smoking 06/19/2020 12:00:00 AM EDT Former Smoker completed Former Smoker eCW1 ([facility]) Smoking 06/19/2020 12:00:00 AM EDT Former Smoker completed Former Smoker eCW1 ([facility]) Smoking 06/19/2020 12:00:00 AM EDT Former Smoker completed Former Smoker eCW1 ([facility]) Smoking 06/19/2020 12:00:00 AM EDT Former Smoker completed Former Smoker eCW1 ([facility]) Smoking 06/19/2020 12:00:00 AM EDT Former Smoker completed Former Smoker eCW1 ([facility]) Smoking 06/19/2020 12:00:00 AM EDT Former Smoker completed Former Smoker eCW1 ([facility]) Vital Signs ID Date Data Source UNK Name Value Range Interpretation Code Description Data Source(s) Body weight 149 [lb_av] 149 [lb_av] eCW1 ([facility]) Body weight 67.59 kg 67.59 kg W1 ([facility]) Body height 63.75 [in_i] 63.75 [in_i] W1 ([facility]) Body mass index (BMI) [Ratio] 25.77 kg/m2 25.77 kg/m2 [facility] ([facility]) Heart rate 85 /min 85 /min eCW1 ([facility]) Respiratory rate 18 /min 18 /min eCW1 ([facility]) Body temperature 97.5 [degF] 97.5 [degF] eCW1 ( [facility]) Systolic blood pressure 110 mm[Hg] 110 mm[Hg] e CW1 ([facility]) Diastolic blood pressure 70 mm[Hg] 70 mm[Hg] eCW1 ([facility]) Body weight 153.2 [lb_av] 153.2 [lb_av] eCW1 ([facility]) Body height 63.75 [in_i] 63.75 [in_i] eCW1 ([facility]) Body mass index (BMI) [Ratio] 26.5 kg/m2 26.5 k g/m2 eCW1 ([facility]) Systolic blood pressure 110 mm[Hg] 110 mm[Hg] e CW1 ([facility]) Diastolic blood pressure 74 mm[Hg] 74 mm[Hg] eCW1 ([facility]) Body weight 157.8 [lb_av] 157.8 [lb_av] eCW1 ([facility]) Body height 63.75 [in_i] 63.75 [in_i] eCW1 ([facility]) Body mass index (BMI) [Ratio] 27.30 kg/m2 27.30 kg/m2 eCW1 ([facility]) Heart rate 74 /min 74 /min eCW1 ([facility]) Respiratory rate 20 /min 20 /min eCW1 ([facility]) Body temperature 98.1 [degF] 98.1 [degF] eCW1 ( [facility]) Systolic blood pressure 118 mm[Hg] 118 mm[Hg] e CW1 ([facility]) Diastolic blood pressure 72 mm[Hg] 72 mm[Hg] eCW1 ([facility]) Body temperature 97.6 [degF] 97.6 [degF] eCW1 ( [facility]) Systolic blood pressure 110 mm[Hg] 110 mm[Hg] e CW1 ([facility]) Diastolic blood pressure 8 mm[Hg] 8 mm[Hg] eCW1 ([facility]) Body weight 157 [lb_av] 157 [lb_av] eCW1 ([facility]) Body height 63.75 [in_i] 63.75 [in_i] eCW1 ([facility]) Body mass index (BMI) [Ratio] 27.16 kg/m2 27.16 kg/m2 eCW1 ([facility]) Heart rate 70 /min 70 /min eCW1 ([facility]) Respiratory rate 18 /min 18 /min eCW1 ([facility]) Body weight 152.12 [lb_av] 152.12 [lb_av] eCW1 ([facility]) Body height 63.75 [in_i] 63.75 [in_i] eCW1 ([facility]) Heart rate 70 /min 70 /min eCW1 ([facility]) Body mass index (BMI) [Ratio] 26.31 kg/m2 26.31 kg/m2 eCW1 ([facility]) Respiratory rate 18 /min 18 /min eCW1 ([facility]) Body temperature 97.1 [degF] 97.1 [degF] eCW1 ( [facility]) Systolic blood pressure 110 mm[Hg] 110 mm[Hg] e CW1 ([facility]) Diastolic blood pressure 60 mm[Hg] 60 mm[Hg] eCW1 ([facility]) Body weight 159.4 [lb_av] 159.4 [lb_av] eCW1 ([facility]) Body height 63.75 [in_i] 63.75 [in_i] eCW1 ([facility]) Body mass index (BMI) [Ratio] 27.57 kg/m2 27.57 kg/m2 eCW1 ([facility]) Heart rate 90 /min 90 /min eCW1 ([facility]) Respiratory rate 20 /min 20 /min eCW1 ([facility]) Body temperature 98.0 [degF] 98.0 [degF] eCW1 ( [facility]) Systolic blood pressure 112 mm[Hg] 112 mm[Hg] e CW1 ([facility]) Diastolic blood pressure 62 mm[Hg] 62 mm[Hg] eCW1 ([facility]) Body weight 149 [lb_av] 149 [lb_av] eCW1 ([facility]) Body height 63.75 [in_i] 63.75 [in_i] eCW1 ([facility]) Body mass index (BMI) [Ratio] 25.77 kg/m2 25.77 kg/m2 eCW1 ([facility]) Heart rate 89 /min 89 /min eCW1 ([facility]) Respiratory rate 18 /min 18 /min eCW1 ([facility]) Body temperature 98.0 [degF] 98.0 [degF] eCW1 ( [facility]) Systolic blood pressure 120 mm[Hg] 120 mm[Hg] e CW1 ([facility]) Diastolic blood pressure 78 mm[Hg] 78 mm[Hg] eCW1 ([facility]) Patient Treatment Plan of Care Planned Activity Planned Date Details Description Data Source (s) Calcium Carbonate 1000 MG Chewable Tablet [Tums] 02/23/2021 12:00:0 0 AM EDT eCW1 ([facility]) Calcium Carbonate 1000 MG Chewable Tablet [Tums] 02/23/2021 12:00:0 0 AM EDT eCW1 ([facility]) Calcium Carbonate 1000 MG Chewable Tablet [Tums] 02/23/2021 12:00:0 0 AM EDT eCW1 ([facility]) Calcium Carbonate 1000 MG Chewable Tablet [Tums] 02/23/2021 12:00:0 0 AM EDT eCW1 ([facility]) Metronidazole 500 MG Oral Tablet [Flagyl] 10/29/2020 12:00:00 AM ES T eCW1 ([facility]) Metronidazole 500 MG Oral Tablet [Flagyl] 10/29/2020 12:00:00 AM ES T eCW1 ([facility]) Metronidazole 500 MG Oral Tablet [Flagyl] 10/29/2020 12:00:00 AM ES T eCW1 ([facility]) Metronidazole 500 MG Oral Tablet [Flagyl] 10/29/2020 12:00:00 AM ES T eCW1 ([facility]) Metronidazole 500 MG Oral Tablet [Flagyl] 10/29/2020 12:00:00 AM ES T eCW1 ([facility]) Metronidazole 500 MG Oral Tablet [Flagyl] 10/29/2020 12:00:00 AM ES T eCW1 ([facility]) Metronidazole 500 MG Oral Tablet [Flagyl] 10/29/2020 12:00:00 AM ES T eCW1 ([facility]) Metronidazole 500 MG Oral Tablet [Flagyl] 10/29/2020 12:00:00 AM ES T eCW1 ([facility]) Metronidazole 500 MG Oral Tablet [Flagyl] 10/29/2020 12:00:00 AM ES T eCW1 ([facility]) Metronidazole 500 MG Oral Tablet [Flagyl] 10/29/2020 12:00:00 AM ES T eCW1 ([facility]) Metronidazole 500 MG Oral Tablet [Flagyl] 10/29/2020 12:00:00 AM ES T eCW1 ([facility])
--- OUTSIDE RECORDS SUMMARY | 2021-06-26 07:53 | CCD ---
Author Author [facility] Organization [facility] Address Unknown Phone Unavailable Care Team Providers Care Plate Mill Hand Name Role Phone Fatuma Bae Unavailable PROBLEMS Type Condition ICD9-CM Code [id number] Code Onset Dates Condition S tatus W/U Status Risk SNOMED Code Notes Problem Chronic leukopenia D72.819 Active confirmed 45085217 Problem [place] disease E80.4 Active confirmed 275 89362 Problem Iron deficiency anemia, unspecified iron deficiency an emia type D50.9 Active confirmed 08514592 Problem Vitamin D deficiency E55.9 Active confirmed 16301689 Problem S/P gastric bypass Z98.84 Active confirmed 6 46074034 Problem Cervical cancer screening Z12.4 Active confirmed 098926804 Problem Palpitations R00.2 Active confirmed 0359417 2 Problem Lumbar spondylosis M47.816 Active confirmed 444604732 Problem Dyspepsia R10.13 Active confirmed 054741766 Problem Breast cancer screening Z12.39 Active confirmed 390930722 Problem Impingement syndrome of right shoulder M75.41 A ctive confirmed 690720537 Problem B12 deficiency E53.8 Active confirmed 09234 4004 Problem Bicipital tendinitis, right shoulder M75.21 Act tono confirmed 773403757 Problem Leg cramps, sleep related G47.62 Active confirmed 655744227 Problem FH: lung cancer Z80.1 Active confirmed 4290 71700 Problem Non-seasonal allergic rhinitis, unspecified trigger J30.89 Active confirmed 82811290 ALLERGIES No Known Allergies ENCOUNTERS from 1975 to 2021-04-03 Encounter Location Date Provider Diagnosis [facility] [address] [place] [id number] [place] [address] Mar, Fatuma Catalino Routine gynecologica l examination Z01.419 ; Cervical cancer screening Z12.4 ; Breast cancer screening by mammogram Z12.31 ; Pelvic pain R10.2 and Uterine leiomyoma, unspecified location D25.9 IMMUNIZATIONS Vaccine Route Administration Date Status Influenza [...] College Bachelors degree Audit Question Answer Notes Interpretation: Alcohol Education Total Score: 1 Language: Question Answer Notes Languages spoken: Italian Restorationism: Question Answer Notes Restorationism No jainism beliefs that would impact health care. Sexual [...] REASON FOR REFERRAL No Information VITAL SIGNS Weight 153.2 lbs 29 Abbe, 2021 Height 63.75 in Mar, BMI 26.5 kg/m2 Mar, Blood pressure systolic 110 mm Hg Mar, Blood pressure diastolic 74 mm Hg Mar, MEDICATIONS Medication SIG (Take, Route, Frequency, Duration) Notes Start Da te End Date Status Pramipexole Dihydrochloride 0.25 MG 1 tablet Orally QHS for 90 day(s) Active Slow Iron 160 (50 Fe) MG 1 tablet Orally every other day for 90 day(s ) Active Pantoprazole Sodium 40 MG 1 tablet Orally every morning for 90 day(s) Active Multivitamins Complete 2 tablets by mouth Once a day (Dr. Luo) Active Cholecalciferol 5000 UNIT 2 capsules Orally Once a day for 30 day(s) Active Vitamin B-12 1000 MCG 1 tablet Orally bid for 30 day(s) Active Cetirizine HCl 10 MG 1 tablet Orally Once a day for 90 day(s) Active Fluticasone Propionate 50 MCG/ACT 2 sprays in each nos tril Nasally every morning for 90 day(s) Active Tums Ultra 1000 1000 MG 1 tablet Orally at bedtime for 90 day(s) Feb, Active Voltaren 1 % 4 gm Transdermal QID to L shoulder for 30 day(s) Active PROCEDURES No Information RESULTS Component Value Reference Range WWBC DIGITAL / SARAI BILATERAL MAMMO SCRE ENING (Ultrasound if indicated) Reviewed date:04/02/2021 17:39:56 Interpretation:Negative Performing Lab:[facility],[address] ,[place] [id number] REASON FOR VISIT ANNUAL/MAMMO MEDICAL (GENERAL) HISTORY Type Description Date Medical History obesity s/p gastric bypass 07/2011 Medical History allergic rhinitis Medical History Gilbert's disease Medical History history of recurrent UTI-Sep uary 2005 negative bilateral renal ultrasound, PVR and VCUG [...] year history Surgical History lipoma removed from back-[facility] 12/04/10 Surgical History cholecystectomy Surgical History C section x2 Surgical History tubal ligation Surgical History laproscopic gastric Bypass-Dr. Luo Surgical History NovaSure Ablation - Dr Tuttle 10/2013 Surgical History lasik surgery will. 12/2015 Hospitalization History above surgeries Goals Section No Information Health Concerns No Information MEDICAL EQUIPMENT No Information MENTAL STATUS No Information FUNCTIONAL STATUS No Information ASSESSMENTS Encounter Date Diagnosis Assessment Notes Treatment Notes Treatm ent Clinical Notes Mar, Routine gynecological examination (ICD-10 - Z01. 419) Mar, Cervical cancer screening (ICD-10 - Z12.4) Reviewed ASCCP guidelines for pap screening and frequency, reviewed utility of HPV testing as well and when next pap will be due Mar, Breast cancer screening by mammogram (ICD-10 - Z 12.31) Reviewed screening intervals with mammography, recommend annual screening until age 75. Reviewed breast awareness, know what is normal for you so that you can detect any changes in the breasts, check breasts regularly, in a routine that you are comfortable with. Mar, Pelvic pain (ICD-10 - R10.2) Mar, Uterine leiomyoma, unspecified location (ICD-10 - D25.9) pt plans surgical consult with Dr Tuttle, she has seen him in past PLAN OF TREATMENT Treatment Notes Assessment Notes Clinical Notes Cervical cancer screening Reviewed ASCCP guidelines for pap screening and frequency, reviewed utility of HPV testing as well and when next pap will be due Breast cancer screening by mammogram Rev iewed screening intervals with mammography, recommend annual screening until age 75. Reviewed breast awareness, know what is normal for you so that you can detect any changes in the breasts, check breasts regularly, in a routine that you are comfortable with. Uterine leiomyoma, unspecified location pt plans surgical consult with Dr Tuttle, she has seen him in past Treatment Notes Test Name Order Date PAP REQUEST FOR SERVICE 2021-04-02 Next Appt Details 1 Year Reason:annual/mammo Provider Name:Hellen Tuttle, 2021-05-25 1 0:40:00 AM, [address] [facility], , [place], [address], Provider Name:Harjinder Barrera, 2021-06-22 0 3:00:00 PM, [address] [facility], , [place], [address], Provider Name:Fatuma Bae, 2022-04-05 02:00:00 PM, [address] [facility], , [place], [address], Follow Up:1 Yearannual/mammo Insurance Providers Payer Name Payer Address Payer Phone Insured Name Patient Relati onship to Insured Coverage Start Date Coverage End Date [facility] [address] [address] [facility] [id number] [place] self
--- OUTSIDE RECORDS SUMMARY | 2021-06-26 07:53 | CCD ---
Author Author [facility] Organization [facility] Address Unknown Phone Unavailable Care Team Providers Care Soda Dialyzer Name Role Phone Melva Willams Unavailable PROBLEMS Type Condition ICD9-CM Code OLZ52-WG Code Onset Dates Condition S tatus W/U Status Risk SNOMED Code Notes Problem Iron deficiency anemia, unspecified iron deficiency an emia type D50.9 Active confirmed 48091872 Problem Chronic leukopenia D72.819 Active confirmed 54071531 Problem S/P gastric bypass Z98.84 Active confirmed 6 58443348 Problem [place] disease E80.4 Active confirmed 275 04634 Problem Breast cancer screening Z12.39 Active confirmed 794368162 Problem Cervical cancer screening Z12.4 Active confirmed 848587575 Problem Palpitations R00.2 Active confirmed 5780664 2 Problem Non-seasonal allergic rhinitis, unspecified trigger J30.89 Active confirmed 54594420 Problem B12 deficiency E53.8 Active confirmed 54209 4004 Problem Dyspepsia R10.13 Active confirmed 716671899 Problem Vitamin D deficiency E55.9 Active confirmed 80310997 Problem Lumbar spondylosis M47.816 Active confirmed 679462521 Problem Bicipital tendinitis, right shoulder M75.21 Act tono confirmed 794469521 Problem Leg cramps, sleep related G47.62 Active confirmed 038122475 Problem FH: lung cancer Z80.1 Active confirmed 4290 51302 ALLERGIES No Known Allergies ENCOUNTERS from 1975 to 2021-05-25 Encounter Location Date Provider Diagnosis [address] [phone] [place] [address] May, Melva Willams Bicipital tendinitis, right shoulder M75.21 IMMUNIZATIONS Vaccine Route Administration Date Status Influenza [...] Education Language: Question Answer Notes Languages spoken: Rwandan Sikh: Question Answer Notes Sikh No latter day beliefs that would impact health care. Sexual [...] smoked? > 10 years REASON FOR REFERRAL from 1975 to 2021-05-25 Reason physical therapy Diagnosis 1 Bicipital tendinitis, right shoulder (M75.21) Referral Organization [facility] Ethan Referring Provider First Name Melva Referring Provider Last Name Екатерина Referring Provider Specialty Family Medicine Referred Provider [facility] Referred Provider Specialty Physical Therapist Referral Priority Routine Reason physical therapy Diagnosis 1 Bicipital tendinitis, right shoulder (M75.21) Referral Organization [facility] Ethan Referring Provider First Name Melva Referring Provider Last Name Mjamy Referring Provider Specialty Family Medicine Referred Provider [facility],Physical Therapy ([facility]) Referred Provider Specialty Physical Therapist Referral Priority Routine VITAL SIGNS Weight 149 lbs May, Weight-kg 67.59 kg May, Height 63.75 in May, BMI 25.77 kg/m2 May, Heart Rate 85 /min May, Respiratory Rate 18 /min May, Temperature 97.5 degrees Fahrenheit May, Oximetry 100% May, Blood pressure systolic 110 mm Hg May, Blood pressure diastolic 70 mm Hg May, MEDICATIONS Medication SIG (Take, Route, Frequency, Duration) [...] Information RESULTS No Results REASON FOR VISIT tendinitis right arm MEDICAL (GENERAL) HISTORY Type Description Date Medical History obesity s/p gastric bypass 07/2011 Medical History allergic rhinitis Medical History Gilbert's disease Medical History history of recurrent UTI-Sep negative bilateral renal ultrasound, PVR and VCUG Medical History leukopenia, chronic Medical History h/o MDD/chronic insomnia Medical History B12 deficiency Medical History GERD/dyspepsia Medical History mild Raynaud's syndrome Medical History tyrer amolzick 9.91 % 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 work release note given for 2 days 02/23/21 instructed ROM/strengthening to PREVENT flares 12/30/20 R shoulder/humerus XR WNL PLAN OF TREATMENT Treatment Notes Assessment Notes Clinical Notes Bicipital tendinitis, right shoulder 05/07 continue topical analgesics/RICE/home stretches/PT at [facility] . work release note given for 2 days02/23/21 instructed ROM/strengthening to PREVENT flares12/30/20 R shoulder/humerus XR WNL Referrals Referral Date Details physical therapy, Physical T herapy ([place]) [facility] physical therapy, Physical T herapy ([place]) [facility] Next Appt Details f/u appt c Reason: Provider Name:Harjinder Barrera, 2021-06-22 0 3:00:00 PM, [address] [place] [address], , [place], [address], Provider Name:Fatuma Bae, 2022-04-05 02:00:00 PM, [address] [facility], , [place], [address], Insurance Providers Payer Name Payer Address Payer Phone Insured Name Patient Relati onship to Insured Coverage Start Date Coverage End Date [facility] [address] [address] [facility] [id number] W[place]ON ANDERSEN self
[2021-06-26 08:31] LABS: HEMATOCRIT 35.1 % (36.0-47.0); HEMOGLOBIN 11.3 g/dl (12.0-15.5); MEAN CORPUSCULAR HGB CONC 32.2 g/dl (32.0-36.5); PLATELET COUNT, AUTOMATED 268 10^3/uL (150-450); WHITE BLOOD COUNT 3.5 10^3/uL (4.0-10.0)
[2021-06-26] MEDS ORDERED: MIDAZOLAM INJ 2MG/2ML VIAL (J2250 PER 1MG) As Ordered ONE (08:34)
[2021-06-26] MEDS ORDERED: propofoL 200 MG/20 ML VIAL As Ordered ONE ×2 (08:34→11:35)
[2021-06-26] MEDS ORDERED: dexameTHASONE 4 MG/ML 1ML VIAL (J1100 PER 1MG) As Ordered ONE (08:34)
[2021-06-26] MEDS ORDERED: fentaNYL 100 MCG/2 ML INJECTION (J3010) As Ordered ONE (08:34)
[2021-06-26] MEDS ORDERED: ROCURONIUM BROMIDE 50 MG/5 ML VIAL As Ordered ONE ×2 (08:34→11:02)
[2021-06-26] MEDS ORDERED: LIDOCAINE 2% 100MG/5ML SDV (FOR ANES.) As Ordered ONE ×2 (08:34→08:54)
[2021-06-26] MEDS ORDERED: ONDANSETRON 4MG/2ML VIAL As Ordered ONE (08:35)
[2021-06-26] MEDS ORDERED: SUGAMMADEX SODIUM 500 MG/5 ML VIAL (BRIDION) As Ordered ONE (09:02)
[2021-06-26] MEDS ORDERED: KETOROLAC 60MG 2ML VIAL As Ordered ONE (09:02)
[2021-06-26] MEDS ORDERED: BUPIVACAINE HCL 0.25% 30ML VIAL As Ordered ONE (09:34)
[2021-06-26] MEDS ORDERED: ACETAMINOPHEN 1000MG 100ML IV BTL (OFIRMEV) (J0131 PER 10MG) As Ordered ONE (11:01)
[2021-06-26] MEDS ORDERED: METOCLOPRAMIDE INJ 10MG/2ML VIAL (J2765 PER 1) As Ordered ONE (11:48)
[2021-06-26] MEDS ORDERED: oxyCODONE 5MG TAB PO PRN (12:20)
[2021-06-26] MEDS ORDERED: fentaNYL 100 MCG/2 ML INJECTION (J3010) IV PRN (12:20)
[2021-06-26] MEDS ORDERED: LR 1,000 ML IV SCH (12:20)
[2021-06-26] MEDS ORDERED: ONDANSETRON 4MG/2ML VIAL IV PRN (12:20)
[2021-06-26] MEDS ORDERED: PERCOCET 5MG/325MG TAB PO PRN (12:20)
--- NOTE | 2021-06-26 12:28 | ROOPDOC ---
[facility] Report Of Operation Report of Operation DATE OF PROCEDURE: 06/26/21 PREPROCEDURE DIAGNOSES: 1. Chronic pelvic pain 2. Fibroid uterus. POSTPROCEDURE DIAGNOSES: 1. Chronic pelvic pain 2. Fibroid uterus. 3. Endometriosis PROCEDURES PERFORMED: 1. Robotic-assisted laparoscopic hysterectomy. 2. Bilateral salpingo-oophorectomy 3. Cystoscopy. SURGEON: Sharon Tuttle MD QUEEN'S COUNSEL: TONIE Terrazas ANESTHESIA: General endotracheal anesthesia. ESTIMATED BLOOD LOSS: 100 mL. INTRAVENOUS FLUIDS: 1000 mL lactated Ringer solution. URINE OUTPUT: 100 mL. PREPROCEDURE ANTIBIOTICS: 2g Ancef OPERATIVE FINDINGS: The patient with normal-appearing bilateral adnexa and uterus. Endometriosis in the posterior cul-de-sac CYSTOSCOPIC FINDING: Normal bladder mucosa, no foreign objects. Bilateral ureteral jets were observed. SPECIMEN: Uterus, cervix, bilateral fallopian tubes and ovaries DESCRIPTION OF PROCEDURE: After informed consent was obtained and written consent was reviewed, the patient was brought to the operating room, where general endotracheal anesthesia was obtained. She was then placed in lithotomy position, was prepped and draped in a normal sterile fashion. A time-out in the operating room was then performed, identifying the patient, procedure to be performed, as well as drug allergies. A speculum was then placed, revealing the cervix. The anterior and posterior aspects of the cervix were stitched with a 0 Vicryl. The uterus was then sounded to 5 cm. A medium VCare uterine manipulator was then advanced through the cervical os for means to manipulate the uterus. The cervical cap was applied over the cervix, as well as the vaginal sleeve applied into the vagina. The speculum was removed from the patients vagina. A Mina catheter was then placed and set to gravity. Gloves were changed, and attention was turned to the patients abdomen, where a Veress needle was placed through the umbilicus. A pneumoperitoneum was then obtained with CO2 gas. The supraumbilical area was infused with 0.25% Marcaine. An incision was made in this area, and a 8 mm trocar and sleeve was advanced through this incision. The laparoscope was then replaced, revealing intra-abdominal placement. Three additional port sites were placed, two to the left side of the patient's abdomen and one to the right. These areas was infused with 0.25% Marcaine. Each one of these areas, incisions were made, and 8 mm trocars and sleeves advanced through each one of these incisions under direct visualization. Next, the da Gabo was then docked, utilizing a camera arm and two operative arms. The patient's abdomen was then surveyed with the above-noted finding. Bilateral salpingo-oophorectomy were then performed. The infundibulopelvic ligaments bilateral were cauterized and ligated with good hemostasis noted. The round ligaments bilaterally were cauterized and ligated with good hemostasis noted. The anterior and posterior aspects of broad ligaments were . The anterior leaf of the broad ligament was cauterized and ligated and dissected along the bladder, creating a bladder flap. The remainder of the broad and cardinal ligaments were then cauterized and ligated with good hemostasis noted. The uterine arteries were skeletonized bilaterally and were cauterized and transected with good hemostasis noted. Anterior and posterior colpotomies were made using monopolar scissors. The uterus was then brought out through the vaginal incision. The surgical sites were inspected and noted to be hemostatic. The vaginal cuff was then closed using 2-0 V-Loc system in a running fashion. Deyanira was then applied over the surgical field. The pneumoperitoneum was then released. Next, the cystoscopy was then performed. Utilizing a 70-degree cystoscope, it was advanced transurethrally through the bladder. The bladder was surveyed, showing normal bladder mucosa, no foreign bodies. The bilateral ureteral jets were observed. The cystoscope was then removed. The bladder was then drained. Gloves were changed. Attention was then turned to the patients abdomen, where all four port sites were closed with 4-0 Monocryl and dressed with Dermabond. The patient was then taken out of lithotomy position and was awakened from general anesthesia and taken to recovery in stable condition. Counts were correct. Donna Metcalf, my surgical assist, played a central role in the operation. She assisted with port placement, tissue retraction and identification, as well as wound closure. SHARON TUTTLE MD. Jun 26, 2021 12:28
[2021-06-26 13:40] VITALS: BP 109/64
== END 2021-06-26 13:50 | disposition home or self-care (01) ==
LOC: M SDC 07:49
PROVIDERS: ATTEND Obstetrics & Gynecology
DX: N80.9 Endometriosis, unspecified (principal); D25.9 Leiomyoma of uterus, unspecified; N72 Inflammatory disease of cervix uteri; K21.9 Gastro-esophageal reflux disease without esophagitis; Z79.899 Other long term (current) drug therapy
CPT/HCPCS: 36415; 58571; 81025; 85027; 86850; 86900; 86901; 88307; J0131; J0690; J1100; J1885; J2250; J2405; J2765; J3010; S2900

== ENCOUNTER 2021-07-01 11:23 | Outpatient (RCR) | payer OTHER ==
[~2021-07-01 11:23] MED LIST changes: -LR 1,000 ML IV ONE; -ceFAZolin SOD 2 GM in IV 1 EA IV ONE
== END 2021-07-05 ==
LOC: M PT 11:23
PROVIDERS: ATTEND Nurse Practitioner Family
DX: M75.21 Bicipital tendinitis, right shoulder (principal)

== ENCOUNTER 2021-07-29 07:00 | Outpatient (RCR) | payer OTHER | END 2021-08-04 | LOC: M PT 07:00 | PROVIDERS: ATTEND Nurse Practitioner Family | DX: M75.21 Bicipital tendinitis, right shoulder (principal) ==

== ENCOUNTER → 2021-09-30 | Outpatient (REF) | payer OTHER | LOC: M SFHCPLAZ 12:42 | PROVIDERS: ATTEND Physician Assistant | DX: R05.9 Cough, unspecified (principal); Z20.828 Contact with and (suspected) exposure to other viral communicable diseases ==

== ENCOUNTER → 2022-02-11 | Outpatient (REF) | payer OTHER ==
[~2022-02-11] MED LIST changes: -D31000TA2 PO; +VITA100093 PO
== END ==
LOC: M SFHCPLAZ 12:42
PROVIDERS: ATTEND Physician Assistant
DX: N89.8 Other specified noninflammatory disorders of vagina (principal); R10.9 Unspecified abdominal pain; Z87.440 Personal history of urinary (tract) infections

== ENCOUNTER → 2022-02-28 | Outpatient (REF) | payer OTHER | LOC: M LAB REF 18:51 | PROVIDERS: ATTEND Physician Assistant | DX: N39.0 Urinary tract infection, site not specified (principal) ==

== ENCOUNTER → 2022-04-13 | Outpatient (CLI) | payer OTHER | LOC: M WHC 09:27 | PROVIDERS: ATTEND Obstetrics & Gynecology | DX: Z12.31 Encounter for screening mammogram for malignant neoplasm of breast (principal) ==

== ENCOUNTER → 2022-06-22 | Outpatient (REF) | payer OTHER | LOC: M SFHCPLAZ 17:16 | PROVIDERS: ATTEND Family Medicine | DX: D48.9 Neoplasm of uncertain behavior, unspecified (principal) ==

== ENCOUNTER → 2023-04-18 | Outpatient (CLI) | payer OTHER | LOC: M WHC 09:27 | PROVIDERS: ATTEND Obstetrics & Gynecology | DX: Z12.31 Encounter for screening mammogram for malignant neoplasm of breast (principal) ==

== ENCOUNTER → 2023-10-27 | Outpatient (CLI) | payer OTHER ==
[2023-10-27 07:58] LABS: BASO # 0.1 10^3/uL (0.0-0.2); BASO % 1.2 % (0.0-1.0); EOS # 0.2 10^3/uL (0.0-0.5); EOS % 4.2 % (0.0-3.0); HEMOGLOBIN 13.2 g/dl (12.0-15.5); LYMPH # 1.6 10^3/uL (1.5-5.0); LYMPH % 39.4 % (24.0-44.0); MEAN CORPUSCULAR HEMOGLOBIN 29.2 pg (27.0-33.0); MEAN CORPUSCULAR VOLUME 88.5 fl (80.0-96.0); MONO # 0.3 10^3/uL (0.0-0.8); MONO % 7.6 % (2.0-8.0); NEUTROPHILS # 1.9 10^3/uL (1.5-8.5); NEUTROPHILS % 47.1 % (36.0-66.0); PLATELET COUNT, AUTOMATED 254 10^3/uL (150-450); RED BLOOD COUNT 4.52 10^6/uL (4.00-5.40); WHITE BLOOD COUNT 4.1 10^3/uL (4.0-10.0)
[2023-10-27 08:33] LABS: ALBUMIN 3.6 G/DL (3.2-5.2); ALKALINE PHOSPHATASE 92 U/L (46-116); ALT/SGPT 22 U/L (7.0-40); AST/SGOT 16 U/L (<34); BILIRUBIN,TOTAL 1.2 MG/DL (0.3-1.2); BLOOD UREA NITROGEN 13 MG/DL (9-23); CALCIUM LEVEL 9.4 MG/DL (8.5-10.1); CARBON DIOXIDE LEVEL 32 MMOL/L (20-31); CHLORIDE LEVEL 109 MMOL/L (98-107); CHOLESTEROL LEVEL 196 MG/DL (<200); CHOLESTEROL RISK RATIO 2.51 (<5); CREATININE FOR GFR 0.71 MG/DL (0.55-1.30); FERRITIN 12.7 NG/ML (7.3-270.7); GLOMERULAR FILTRATION RATE > 60.0 (>58); GLUCOSE, FASTING 87 MG/DL (60-100); HDL CHOLESTEROL 77.8 MG/DL (>40); LDL CHOLESTEROL 104.2 MG/DL (<100); NON-HDL-C 118.2 MG/DL; POTASSIUM SERUM 4.8 MMOL/L (3.5-5.1); PTH INTACT 46.9 PG/ML (18.5-88.0); SODIUM LEVEL 141 MMOL/L (136-145); TOTAL PROTEIN 6.4 G/DL (5.7-8.2); TRIGLYCERIDES LEVEL 70 MG/DL (<150)
[2023-10-27 08:35] LABS: TOTAL 25(OH) VITAMIN D 35.9 NG/ML (20.0-100.0)
[2023-10-27 09:23] LABS: HEMOGLOBIN A1c 5.1 % (4.0-6.0)
== END ==
LOC: M LAB 06:57
PROVIDERS: ATTEND Family Medicine
DX: R73.01 Impaired fasting glucose (principal); E55.9 Vitamin D deficiency, unspecified; D50.9 Iron deficiency anemia, unspecified

== ENCOUNTER → 2023-11-17 | Outpatient (CLI) | payer OTHER | LOC: M WHC 18:52 | PROVIDERS: ATTEND Family Medicine | DX: Z12.31 Encounter for screening mammogram for malignant neoplasm of breast (principal); M85.80 Other specified disorders of bone density and structure, unspecified site; Z53.9 Procedure and treatment not carried out, unspecified reason ==

== ENCOUNTER → 2023-12-09 | Outpatient (CLI) | payer OTHER | LOC: M WHC 10:12 | PROVIDERS: ATTEND Family Medicine | DX: M85.88 Other specified disorders of bone density and structure, other site (principal) ==

== ENCOUNTER → 2024-02-01 | Outpatient (REF) | payer OTHER | LOC: M SFHCPLAZ 12:42 | PROVIDERS: ATTEND Physician Assistant Medical | DX: B00.1 Herpesviral vesicular dermatitis (principal) ==

== ENCOUNTER 2024-04-20 12:43 | Day surgery (SDC) | payer OTHER ==
[~2024-04-20] VITALS: Ht 162.6 cm; Wt 76.2 kg
[~2024-04-20 12:43] MED LIST changes: +CALC1CAP42 PO; +ESTR0.1C5 TOP; +ZYRT10TA12 PO
[2024-04-20] MEDS ORDERED: LR 1,000 ML IV SCH (13:10)
[2024-04-20 13:31] LABS: HEMATOCRIT 38.8 % (36.0-47.0); HEMOGLOBIN 13.2 g/dl (12.0-15.5); MEAN CORPUSCULAR HEMOGLOBIN 30.3 pg (27.0-33.0); MEAN CORPUSCULAR VOLUME 89.2 fl (80.0-96.0); PLATELET COUNT, AUTOMATED 247 10^3/uL (150-450); RED BLOOD COUNT 4.35 10^6/uL (4.00-5.40); WHITE BLOOD COUNT 4.4 10^3/uL (4.0-10.0)
[2024-04-20] MEDS ORDERED: MIDAZOLAM INJ 2MG/2ML VIAL As Ordered ONE (13:50)
[2024-04-20] MEDS ORDERED: fentaNYL 100 MCG/2 ML INJECTION As Ordered ONE (13:51)
[2024-04-20 13:54] LABS: ALBUMIN 3.9 G/DL (3.2-5.2); ALKALINE PHOSPHATASE 103 U/L (46-116); ALT/SGPT 23 U/L (7.0-40); AST/SGOT 17 U/L (<34); BILIRUBIN,TOTAL 1.4 MG/DL (0.3-1.2); BLOOD UREA NITROGEN 13 MG/DL (9-23); CALCIUM LEVEL 9.1 MG/DL (8.5-10.1); CARBON DIOXIDE LEVEL 26 MMOL/L (20-31); CHLORIDE LEVEL 110 MMOL/L (98-107); CREATININE FOR GFR 0.65 MG/DL (0.55-1.30); GLOMERULAR FILTRATION RATE > 60.0 (>58); GLUCOSE, FASTING 91 MG/DL (60-100); POTASSIUM SERUM 3.9 MMOL/L (3.5-5.1); SODIUM LEVEL 142 MMOL/L (136-145)
[2024-04-20] MEDS ORDERED: KETOROLAC 60MG 2ML VIAL As Ordered ONE (13:55)
[2024-04-20] MEDS ORDERED: propofoL 200 MG/20 ML VIAL As Ordered ONE (13:55)
[2024-04-20 14:10] VITALS: BP 100/57; TEMP 97.7; O2SAT 96
[2024-04-20 16:28] LABS: Trichomonas vaginalis (AMP) POSITIVE (NEGATIVE)
[2024-04-20 17:00] LABS: GC DNA AMPLIFICATION NEGATIVE (NEGATIVE)
== END 2024-04-20 14:54 | disposition home or self-care (01) ==
LOC: M SDC 12:43
PROVIDERS: ATTEND Obstetrics & Gynecology
DX: N94.2 Vaginismus (principal); N94.10 Unspecified dyspareunia; Z90.710 Acquired absence of both cervix and uterus; Z98.51 Tubal ligation status; I73.00 Raynaud's syndrome without gangrene; L42 Pityriasis rosea; Z98.84 Bariatric surgery status; Z79.899 Other long term (current) drug therapy; K21.9 Gastro-esophageal reflux disease without esophagitis
CPT/HCPCS: 36415; 57410; 80053; 85027; 86850; 86900; 86901; 87661; 87810; 87850; J0665; J1885; J2250; J3010

== ENCOUNTER → 2024-07-19 | Outpatient (REF) | payer OTHER ==
[2024-07-19 20:12] LABS: Trichomonas vaginalis (AMP) NOT DETECTED (NEGATIVE)
[2024-07-19 20:36] LABS: GC DNA AMPLIFICATION NEGATIVE (NEGATIVE)
== END ==
LOC: M PLALAB 14:10
PROVIDERS: ATTEND Obstetrics & Gynecology
DX: Z86.19 Personal history of other infectious and parasitic diseases (principal)

== ENCOUNTER → 2024-07-19 | Outpatient (CLI) | payer OTHER | LOC: M WHC 08:53 | PROVIDERS: ATTEND Family Medicine | DX: Z12.31 Encounter for screening mammogram for malignant neoplasm of breast (principal); R92.313 Mammographic fatty tissue density, bilateral breasts ==

== ENCOUNTER → 2024-07-19 | Outpatient (CLI) | payer OTHER ==
[2024-07-19 10:31] LABS: BASO # 0.1 10^3/uL (0.0-0.2); BASO % 1.3 % (0.0-1.0); EOS # 0.2 10^3/uL (0.0-0.5); EOS % 5.3 % (0.0-3.0); HEMATOCRIT 38.8 % (36.0-47.0); LYMPH # 1.9 10^3/uL (1.5-5.0); LYMPH % 41.9 % (24.0-44.0); MEAN CORPUSCULAR HEMOGLOBIN 30.5 pg (27.0-33.0); MEAN CORPUSCULAR HGB CONC 33.5 g/dl (32.0-36.5); MEAN CORPUSCULAR VOLUME 91.1 fl (80.0-96.0); MONO # 0.4 10^3/uL (0.0-0.8); MONO % 9.5 % (2.0-8.0); NEUTROPHILS # 1.9 10^3/uL (1.5-8.5); NEUTROPHILS % 41.8 % (36.0-66.0); PLATELET COUNT, AUTOMATED 273 10^3/uL (150-450); RED BLOOD COUNT 4.26 10^6/uL (4.00-5.40); WHITE BLOOD COUNT 4.5 10^3/uL (4.0-10.0)
[2024-07-19 10:36] LABS: HEMATOCRIT 39.3 % (36.0-47.0)
[2024-07-19 10:37] LABS: ALBUMIN 3.8 G/DL (3.2-5.2); ALKALINE PHOSPHATASE 82 U/L (35-104); ALT/SGPT 31 U/L (7.0-40); AST/SGOT 33 U/L (<34); BILIRUBIN,TOTAL 0.9 MG/DL (0.3-1.2); BLOOD UREA NITROGEN 15 MG/DL (9-23); CALCIUM LEVEL 9.3 MG/DL (8.5-10.1); CARBON DIOXIDE LEVEL 28 MMOL/L (20-31); CHLORIDE LEVEL 109 MMOL/L (98-107); CHOLESTEROL LEVEL 203 MG/DL (<200); CHOLESTEROL RISK RATIO 2.87 (<5); CREATININE FOR GFR 0.66 MG/DL (0.55-1.30); GLOMERULAR FILTRATION RATE > 60.0 (>58); GLUCOSE, FASTING 80 MG/DL (60-100); HDL CHOLESTEROL 70.6 MG/DL (>40); LDL CHOLESTEROL 117.2 MG/DL (<100); NON-HDL-C 132.4 MG/DL; POTASSIUM SERUM 4.5 MMOL/L (3.5-5.1); SODIUM LEVEL 143 MMOL/L (136-145); TOTAL PROTEIN 6.8 G/DL (5.7-8.2); TRIGLYCERIDES LEVEL 76 MG/DL (<150)
[2024-07-19 10:38] LABS: FERRITIN 20.2 NG/ML (7.3-270.7); TOTAL 25(OH) VITAMIN D 32.7 NG/ML (20.0-100.0)
[2024-07-19 10:53] LABS: PTH INTACT 75.2 PG/ML (18.5-88.0)
[2024-07-19 10:54] LABS: VITAMIN B12 LEVEL > 2000 PG/ML (211-911)
== END ==
LOC: M PLALAB 08:35
PROVIDERS: ATTEND Family Medicine
DX: E53.8 Deficiency of other specified B group vitamins (principal); E80.4 Gilbert syndrome; M85.80 Other specified disorders of bone density and structure, unspecified site; R73.01 Impaired fasting glucose; E55.9 Vitamin D deficiency, unspecified; D50.9 Iron deficiency anemia, unspecified

== ENCOUNTER 2024-07-26 10:32 | Outpatient (CLI) | payer OTHER ==
[~2024-07-26] VITALS: Ht 162.6 cm; Wt 72.7 kg
[2024-07-26 10:55] VITALS: BP 139/78; O2SAT 100
[2024-07-26] MEDS: ZOLEDRONIC ACID 5 MG in IV 1 EA IV ONE (11:06)
[2024-07-26 11:43] VITALS: BP 131/71; O2SAT 100
== END 2024-07-26 11:45 | disposition home or self-care (01) ==
LOC: M INFU 10:32
PROVIDERS: ATTEND Family Medicine
DX: M85.80 Other specified disorders of bone density and structure, unspecified site (principal)
CPT/HCPCS: 96365; J3489

== ENCOUNTER → 2024-10-17 | Outpatient (CLI) | payer OTHER ==
[2024-10-17 07:28] LABS: HEMATOCRIT 38.4 % (36.0-47.0); HEMOGLOBIN 12.9 g/dl (12.0-15.5); MEAN CORPUSCULAR HEMOGLOBIN 30.1 pg (27.0-33.0); MEAN CORPUSCULAR HGB CONC 33.6 g/dl (32.0-36.5); MEAN CORPUSCULAR VOLUME 89.5 fl (80.0-96.0); PLATELET COUNT, AUTOMATED 241 10^3/uL (150-450); RED BLOOD COUNT 4.29 10^6/uL (4.00-5.40); WHITE BLOOD COUNT 3.4 10^3/uL (4.0-10.0)
[2024-10-17 07:29] LABS: IONIZED CALCIUM 4.5 MG/DL (4.5-5.3)
[2024-10-17 08:04] LABS: FERRITIN 17.9 NG/ML (7.3-270.7)
[2024-10-17 08:12] LABS: TOTAL IRON BINDING CAPACITY 304 UG/DL (250-425)
[2024-10-17 08:13] LABS: ALBUMIN 3.5 G/DL (3.2-5.2); ALKALINE PHOSPHATASE 78 U/L (35-104); ALT/SGPT 30 U/L (7.0-40); AST/SGOT 27 U/L (<34); BILIRUBIN,TOTAL 0.8 MG/DL (0.3-1.2); BLOOD UREA NITROGEN 13 MG/DL (9-23); CALCIUM LEVEL 8.7 MG/DL (8.5-10.1); CARBON DIOXIDE LEVEL 26 MMOL/L (20-31); CHLORIDE LEVEL 113 MMOL/L (98-107); GLOMERULAR FILTRATION RATE > 60.0 (>58); GLUCOSE, FASTING 87 MG/DL (60-100); IRON (FE) 89 UG/DL (50-170); PERCENT SATURATION 29.3 % (13.2-45.0); SODIUM LEVEL 147 MMOL/L (136-145); TOTAL PROTEIN 6.5 G/DL (5.7-8.2)
[2024-10-17 08:15] LABS: FOLATE 19.65 NG/ML (>5.4)
== END ==
LOC: M LAB 06:38
PROVIDERS: ATTEND Surgery
DX: Z98.84 Bariatric surgery status (principal)

== ENCOUNTER → 2024-11-06 | Outpatient (CLI) | payer OTHER ==
[~2024-11-06] MED LIST changes: +E-Z-GAS II EFFERVESCENT PACKET (SODIUM BICARB./CITRIC ACID/SIMETHICONE) As Ordered ONE; +E-Z-HD 98% w/w 340GM SUSP BTL As Ordered ONE; +E-Z-PAQUE 96% w/w SUSP 176GM BTL As Ordered ONE
== END ==
LOC: M RAD 08:17
PROVIDERS: ATTEND Surgery
DX: Z98.84 Bariatric surgery status (principal); R63.5 Abnormal weight gain

== ENCOUNTER → 2025-06-10 | Outpatient (CLI) | payer OTHER ==
[~2025-06-10] MED LIST changes: -E-Z-GAS II EFFERVESCENT PACKET (SODIUM BICARB./CITRIC ACID/SIMETHICONE) As Ordered ONE; -E-Z-HD 98% w/w 340GM SUSP BTL As Ordered ONE; -E-Z-PAQUE 96% w/w SUSP 176GM BTL As Ordered ONE
[2025-06-10 14:09] LABS: BASO # 0.1 10^3/uL (0.0-0.2); BASO % 1.2 % (0.0-1.0); EOS # 0.3 10^3/uL (0.0-0.5); EOS % 6.7 % (0.0-3.0); LYMPH # 1.6 10^3/uL (1.5-5.0); LYMPH % 39.7 % (24.0-44.0); MONO # 0.3 10^3/uL (0.0-0.8); MONO % 7.9 % (2.0-8.0); NEUTROPHILS # 1.8 10^3/uL (1.5-8.5); NEUTROPHILS % 44.3 % (36.0-66.0); PLATELET COUNT, AUTOMATED 281 10^3/uL (150-450)
[2025-06-10 14:38] LABS: ALT/SGPT 19 U/L (7.0-40); AST/SGOT 25 U/L (<34); CALCIUM LEVEL 9.1 MG/DL (8.5-10.1); CARBON DIOXIDE LEVEL 26 MMOL/L (20-31); CHLORIDE LEVEL 104 MMOL/L (98-107); CHOLESTEROL LEVEL 189 MG/DL (<200); CHOLESTEROL RISK RATIO 2.47 (<5); CREATININE FOR GFR 0.69 MG/DL (0.55-1.30); GLOMERULAR FILTRATION RATE > 90.0 (>58); IRON (FE) 159 UG/DL (50-170); LDL CHOLESTEROL 96.2 MG/DL (<100); NON-HDL-C 112.6 MG/DL; PERCENT SATURATION 54.6 % (13.2-45.0); POTASSIUM SERUM 4.0 MMOL/L (3.5-5.1); SODIUM LEVEL 140 MMOL/L (136-145); TOTAL 25(OH) VITAMIN D 53.1 NG/ML (20.0-100.0); TRIGLYCERIDES LEVEL 82 MG/DL (<150); VITAMIN B12 LEVEL 1518 PG/ML (211-911)
== END ==
LOC: M LAB 11:55
PROVIDERS: ATTEND Physician Assistant
DX: E44.0 Moderate protein-calorie malnutrition (principal); Z98.84 Bariatric surgery status

== ENCOUNTER → 2025-06-10 | Outpatient (CLI) | payer OTHER ==
[2025-06-10 14:30] LABS: BASO # 0.1 10^3/uL (0.0-0.2); BASO % 1.2 % (0.0-1.0); EOS # 0.3 10^3/uL (0.0-0.5); EOS % 7.0 % (0.0-3.0); LYMPH # 1.6 10^3/uL (1.5-5.0); LYMPH % 39.2 % (24.0-44.0); MONO # 0.3 10^3/uL (0.0-0.8); MONO % 7.0 % (2.0-8.0); NEUTROPHILS # 1.9 10^3/uL (1.5-8.5); NEUTROPHILS % 45.1 % (36.0-66.0); PLATELET COUNT, AUTOMATED 278 10^3/uL (150-450)
[2025-06-10 15:12] LABS: ALT/SGPT 17 U/L (7.0-40); AST/SGOT 23 U/L (<34); CALCIUM LEVEL 9.1 MG/DL (8.5-10.1); CARBON DIOXIDE LEVEL 27 MMOL/L (20-31); CHLORIDE LEVEL 104 MMOL/L (98-107); CHOLESTEROL LEVEL 187 MG/DL (<200); CHOLESTEROL RISK RATIO 2.44 (<5); CREATININE FOR GFR 0.69 MG/DL (0.55-1.30); GLOMERULAR FILTRATION RATE > 90.0 (>58); LDL CHOLESTEROL 94.1 MG/DL (<100); NON-HDL-C 110.5 MG/DL; POTASSIUM SERUM 4.1 MMOL/L (3.5-5.1); PTH INTACT 57.1 PG/ML (18.5-88.0); SODIUM LEVEL 141 MMOL/L (136-145); TRIGLYCERIDES LEVEL 82 MG/DL (<150)
[2025-06-10 15:13] LABS: TOTAL 25(OH) VITAMIN D 47.6 NG/ML (20.0-100.0)
[2025-06-10 15:14] LABS: VITAMIN B12 LEVEL 1443 PG/ML (211-911)
== END ==
LOC: M LAB 11:52
PROVIDERS: ATTEND Family Medicine
DX: D50.9 Iron deficiency anemia, unspecified (principal); E55.9 Vitamin D deficiency, unspecified; R73.01 Impaired fasting glucose; Z98.84 Bariatric surgery status

== ENCOUNTER → 2025-07-04 | Outpatient (REF) | payer OTHER | LOC: M LAB REF 07:33 | PROVIDERS: ATTEND Family Medicine | DX: Z98.84 Bariatric surgery status (principal) ==

== ENCOUNTER → 2025-07-04 | Outpatient (REF) | payer OTHER | LOC: M LAB REF 07:33 | PROVIDERS: ATTEND Physician Assistant | DX: E44.0 Moderate protein-calorie malnutrition (principal); Z98.84 Bariatric surgery status ==

== ENCOUNTER → 2025-07-23 | Outpatient (CLI) | payer OTHER | LOC: M WHC 09:00 | PROVIDERS: ATTEND Student in an Organized Health Care Education/Training Program | DX: Z12.31 Encounter for screening mammogram for malignant neoplasm of breast (principal); R92.323 Mammographic fibroglandular density, bilateral breasts ==

== ENCOUNTER → 2025-09-04 | Outpatient (CLI) | payer OTHER ==
[2025-09-04 10:38] LABS: BASO # 0.1 10^3/uL (0.0-0.2); BASO % 1.4 % (0.0-1.0); EOS # 0.2 10^3/uL (0.0-0.5); EOS % 4.1 % (0.0-3.0); LYMPH # 1.1 10^3/uL (1.5-5.0); LYMPH % 30.9 % (24.0-44.0); MONO # 0.5 10^3/uL (0.0-0.8); MONO % 12.8 % (2.0-8.0); NEUTROPHILS # 1.9 10^3/uL (1.5-8.5); NEUTROPHILS % 50.5 % (36.0-66.0); PLATELET COUNT, AUTOMATED 289 10^3/uL (150-450)
[2025-09-04 11:07] LABS: FREE T4 1.41 NG/DL (0.89-1.76); VITAMIN B12 LEVEL 981 PG/ML (211-911)
[2025-09-04 11:08] LABS: ALT/SGPT 33 U/L (7.0-40); AST/SGOT 37 U/L (<34); CALCIUM LEVEL 9.6 MG/DL (8.5-10.1); CARBON DIOXIDE LEVEL 29 MMOL/L (20-31); CHLORIDE LEVEL 104 MMOL/L (98-107); CHOLESTEROL LEVEL 213 MG/DL (<200); CHOLESTEROL RISK RATIO 2.58 (<5); CREATININE FOR GFR 0.78 MG/DL (0.55-1.30); GLOMERULAR FILTRATION RATE > 90.0 (>51); LDL CHOLESTEROL 116.9 MG/DL (<100); NON-HDL-C 130.5 MG/DL; POTASSIUM SERUM 5.5 MMOL/L (3.5-5.1); SODIUM LEVEL 140 MMOL/L (136-145); TRIGLYCERIDES LEVEL 68 MG/DL (<150)
[2025-09-04 11:39] LABS: PTH INTACT 79.5 PG/ML (18.5-88.0)
[2025-09-04 11:43] LABS: TOTAL 25(OH) VITAMIN D 42.4 NG/ML (20.0-100.0)
== END ==
LOC: M PLALAB 08:52
PROVIDERS: ATTEND Family Medicine
DX: E55.9 Vitamin D deficiency, unspecified (principal); D50.9 Iron deficiency anemia, unspecified; R73.01 Impaired fasting glucose; E53.8 Deficiency of other specified B group vitamins